=== PATIENT | female | born 1955 | race Caucasian/White ===

== ENCOUNTER → 2020-06-01 10:07 | Outpatient (CLI) | payer MEDICARE, OTHER, SELFPAY ==
--- NOTE | ~2020-06-01 | DEXA_ITS ---
Bone Density Report Name: Rosario Mendez Age: 64 Sex: Female Ethnicity: White Date of : 1955 Indication: osteopenia; prior fracture; postmenopausal Referring Provider: SYEDA, MEG Lane Study: Bone densitometry was performed. Exam Date: June 01, 2020 Accession number: [id number] Bone Density: Region BMD T-score Z-score Classification AP Spine (L1-L4) 0.872 -1.6 0.2 Osteopenia Femoral Neck (Left) 0.644 -1.8 -0.3 Osteopenia Total Hip (Left) 0.823 -1.0 0.3 Normal Femoral Neck (Right) 0.621 -2.1 -0.5 Osteopenia Total Hip (Right) 0.798 -1.2 0.1 Osteopenia Total Hip Mean 0.811 -1.1 0.2 Osteopenia World Health Organization criteria for BMD impression classify patients as: Normal (T-score at or above -1.0), Osteopenia (T-score between -1.0 and -2.5), or Osteoporosis (T-score at or below -2.5). 10-year Fracture Risk(1): Major Osteoporotic Fracture 16% Hip Fracture 2.5% Reported Risk Factors: [place] (), Neck BMD=0.621, BMI=35.8, previous fracture (1) FRAX(R) Version 3.08. Fracture probability calculated for an untreated patient. Fracture probability may be lower if the patient has received treatment. Previous Exams: Region Exam Age BMD T-score BMD Change BMD Change Date g/cm2 vs Baseline vs Previous AP Spine(L1-L4) 06/01/2020 64 0.872 -1.6 0.017 0.044* 06/26/2018 62 0.828 -2.0 -0.026* -0.049* 10/04/2014 59 0.877 -1.5 0.023 0.023 07/28/2012 56 0.854 -1.8 Total Hip(Left) 06/01/2020 64 0.823 -1.0 0.016 0.008 06/26/2018 62 0.815 -1.0 0.008 0.027* 10/04/2014 59 0.788 -1.3 -0.019 -0.019 07/28/2012 56 0.807 -1.1 Total Hip(Right) 06/01/2020 64 0.798 -1.2 0.018 -0.011 06/26/2018 62 0.809 -1.1 0.029* -0.031* 10/04/2014 59 0.840 -0.8 0.061* 0.061* 07/28/2012 56 0.779 -1.3 *Denotes significance at 95% confidence level, LSC for AP Spine = 0.022 g/cm2, LSC for Total Hip = 0.027 g/cm2 Clinical Information Provided by Patient: Has had a low trauma fracture Has used the following medications: Vitamin D Patient maximum height was 62 Menopause Age: 46 No regular weight bearing exercise Does not regularly consume dairy products Onset of menses at age 11 Number of children 3 Impression: The patient has low bone m
== END ==
PROVIDERS: PCP Internal Medicine; Visit Provider Internal Medicine
DX: Z78.0 Asymptomatic menopausal state (principal); M85.89 Other specified disorders of bone density and structure, multiple sites
CPT/HCPCS: 77080

== ENCOUNTER 2021-10-05 11:26 | Outpatient (CLI) | payer MEDICARE, OTHER, SELFPAY ==
--- NOTE | ~2021-10-05 | US_ITS ---
EXAMINATION: US venous doppler LE RT DATE: 10/05/2021 12:12 INDICATION: Right lower limb pain. TECHNIQUE: Grayscale ultrasound images without and with compression and Doppler ultrasound images of the right lower extremity veins were obtained. COMPARISON: None. FINDINGS: The visualized portions of right common femoral vein, profunda (deep) femoral vein, femoral vein, pop liteal vein, peroneal veins, posterior tibial veins, and greater saphenous vein outflow are patent. IMPRESSION: 1. No deep venous thrombosis. Reviewed, dictated and finalized at location B.
== END 2021-10-05 11:27 | disposition home or self-care (01) ==
PROVIDERS: PCP Internal Medicine; Visit Provider Physician Assistant
DX: M79.604 Pain in right leg (principal)
CPT/HCPCS: 93971

== ENCOUNTER 2021-10-11 09:06 | Outpatient (CLI) | payer MEDICARE, OTHER, SELFPAY ==
--- NOTE | 2021-10-16 12:11 | P.PCNHOL_ITS ---
Holter/Event Monitor Holter/Event Monitor Date of procedure: 10/16/21 Holter/Event Procedure: 48 Hr Holter Monitor Diagnosis: Palpitations Indications: Palpitation Image/Tracing Quality: Good quality Finding: The basic cardiac rhythm is sinus with normal MO QRS and QT intervals. The heart rate varies from a minimum of 62 to a maximum of 128. The average heart rate was 85. There were no abrupt pauses or abnormalities of AV conduction observed. Supraventricular ectopic activity was rare there was 1 brief 4 beat run of SVT that occurred at 1:32 a.m. on the 2nd day of monitoring. Otherwise there was only 1 other Pac during the entire tracing. There were no examples of atrial fibrillation. Ventricular ectopic activity was also rare consisting of a total of 4 PVCs that were seen during the entire 48 hour monitoring. There were no ventricular couplets or runs. According to the record there were no symptoms reported during this study. Conclusion: 1. Normal sinus rhythm with normal heart rate variability 2. Rare atrial and ventricular ectopic activity which is not symptomatic Mata Sandoval MD [facility]
== END 2021-10-11 09:07 | disposition home or self-care (01) ==
PROVIDERS: PCP Physician Assistant; Visit Provider Physician Assistant
DX: R00.2 Palpitations (principal)
CPT/HCPCS: 93225; 93226

== ENCOUNTER → 2022-07-04 14:47 | Outpatient (CLI) | payer MEDICARE, OTHER, SELFPAY ==
--- NOTE | ~2022-07-04 | DEXA_ITS ---
Bone Density Report Name: JUAN M GARG Age: 66 Sex: Female Ethnicity: White Date of : 1955 Indication: osteopenia; prior fracture; postmenopausal Referring Provider: CAREY, BETH Study: Bone densitometry was performed. Exam Date: July 04, 2022 Accession number: [id number] Bone Density: Region BMD T-score Z-score Classification AP Spine (L1-L4) 0.895 -1.4 0.6 Osteopenia Femoral Neck (Left) 0.645 -1.8 -0.2 Osteopenia Total Hip (Left) 0.781 -1.3 0.1 Osteopenia Femoral Neck (Right) 0.625 -2.0 -0.4 Osteopenia Total Hip (Right) 0.788 -1.3 0.1 Osteopenia Total Hip Mean 0.785 -1.3 0.1 Osteopenia World Health Organization criteria for BMD impression classify patients as: Normal (T-score at or above -1.0), Osteopenia (T-score between -1.0 and -2.5), or Osteoporosis (T-score at or below -2.5). 10-year Fracture Risk(1): Major Osteoporotic Fracture 17% Hip Fracture 2.7% Reported Risk Factors: [place] (), Neck BMD=0.625, BMI=30.0, previous fracture (1) FRAX(R) Version 3.08. Fracture probability calculated for an untreated patient. Fracture probability may be lower if the patient has received treatment. Previous Exams: Region Exam Age BMD T-score BMD Change BMD Change Date g/cm2 vs Baseline vs Previous AP Spine(L1-L4) 07/04/2022 66 0.895 -1.4 0.041* 0.023* 06/01/2020 64 0.872 -1.6 0.017 0.044* 06/26/2018 62 0.828 -2.0 -0.026* -0.049* 10/04/2014 59 0.877 -1.5 0.023 0.023 07/28/2012 56 0.854 -1.8 Total Hip(Left) 07/04/2022 66 0.781 -1.3 -0.026 -0.042* 06/01/2020 64 0.823 -1.0 0.016 0.008 06/26/2018 62 0.815 -1.0 0.008 0.027* 10/04/2014 59 0.788 -1.3 -0.019 -0.019 07/28/2012 56 0.807 -1.1 Total Hip(Right) 07/04/2022 66 0.788 -1.3 0.009 -0.010 06/01/2020 64 0.798 -1.2 0.018 -0.011 06/26/2018 62 0.809 -1.1 0.029* -0.031* 10/04/2014 59 0.840 -0.8 0.061* 0.061* 07/28/2012 56 0.779 -1.3 *Denotes significance at 95% confidence level, LSC for AP Spine = 0.022 g/cm2, LSC for Total Hip = 0.027 g/cm2 Clinical Information Provided by Patient: Has had a low trauma fracture Has used the following medications: Vitamin D, Calcium Patient maximum height was 62 Menopause Age: 46 No regular weight bearing exerc
== END ==
PROVIDERS: PCP Internal Medicine; Visit Provider Nurse Practitioner
DX: M85.88 Other specified disorders of bone density and structure, other site (principal); M85.89 Other specified disorders of bone density and structure, multiple sites
CPT/HCPCS: 77080

== ENCOUNTER 2023-12-25 10:31 | Outpatient (CLI) | payer MEDICARE, OTHER, SELFPAY ==
--- NOTE | ~2023-12-25 | US_ITS ---
Limited Abdominal Sonogram: Real-time sonographic imaging of the right upper quadrant was performed. Clinical History: Right upper quadrant pain Findings: The liver appears normal with no evidence of solid mass lesion or bile duct dilatation. Ma in portal vein demonstrates normal direction of flow. Benign hepatic cyst noted. The gallbladder is w ell distended, and demonstrates 5 mm gallbladder wall polyp. The common bile duct measures 5 mm. The visualized pancreas, aorta, and IVC are unremarkable. Impression: 5 mm gallbladder wall polyp. Reviewed, dictated and finalized at location M. Impression: 5 mm gallbladder wall polyp.
== END 2023-12-25 10:32 | disposition home or self-care (01) ==
LOC: GOSHIMG 10:31
PROVIDERS: PCP Family Medicine; Visit Provider Family Medicine
DX: K82.4 Cholesterolosis of gallbladder (principal)
CPT/HCPCS: 76705

== ENCOUNTER 2024-02-14 14:14 | Outpatient (CLI) | payer MEDICARE, OTHER, SELFPAY ==
--- NOTE | 2024-02-14 14:27 | ECG_ITS ---
Test Date: 2024-02-14 14:49:19 Measurements Intervals [place] Rate: 76 P: 16 GA: 178 QRS: -35 QRSD: 97 T: 5 QT: 402 QTc: 454 Interpretive Statements SINUS RHYTHM MARKED LEFT AXIS DEVIATION [QRS AXIS < -30] LOW QRS VOLTAGE IN PRECORDIAL LEADS [QRS DEFLECTION < 1.0 mV IN CHEST LEADS] VOLTAGE CRITERIA FOR LVH [MEETS CRITERIA IN ONE OF: R(aVL), S(V1), R(V5), R(V5/V6)+S(V1)] POSSIBLE ANTERIOR MYOCARDIAL INFARCTION [30 ms Q WAVE IN V3/V4, OR R < 0.2 mV IN V4], PROBABLY OLD ABNORMAL ECG No previous ECG available for comparison Electronically Signed On 02-15-2024 13:05:40 CDT by Quirino Amaro M.D.
[2024-02-14 15:16] LABS: Amylase 67 U/L (30-110); Lipase 81 U/L (23-300)
== END 2024-02-14 14:15 | disposition home or self-care (01) ==
PROVIDERS: PCP Family Medicine; Visit Provider Surgery
DX: Z01.818 Encounter for other preprocedural examination (principal); K80.50 Calculus of bile duct without cholangitis or cholecystitis without obstruction; I10 Essential (primary) hypertension
CPT/HCPCS: 36415; 82150; 83690; 93005

== ENCOUNTER 2024-02-24 00:23 | Day surgery (SDC) | payer MEDICARE, OTHER, SELFPAY ==
--- NOTE | 2024-02-13 14:05 | PC.NURSE ---
Report to the Outpatient Waiting Room, entrance under the green pavilion located off [facility], at time __6 AM on date _02/24/24 . Planned Procedure Time: _7:30 AM .? Time changes happen often and if your time is changed the preop area will call you the afternoon before. - You and your visitor will be asked to self-screen and do not enter if you have any COVID symptoms. Please call surgeon if you need to reschedule. - A mask is optional within the hospital at this time. Patients may have clear liquids (water, carbonated beverages, clear teas, apple juice) until 3 hours prior to surgery( 4:30 AM) with a maximum of 20 ounces. - No food from midnight until time of surgery and no smoking - Infants may have breast milk until 4 hours before surgery, infant formula 6 hours prior to surgery. - Children will be allowed to drink immediately following surgery.? If applicable, please bring a bottle or sippy cup to assist with drinking. Juice, water, soda, and popsicles are readily available.? For infants on formula, please bring formula the day of surgery.? Pacifiers are allowed. Take only the following medications with a SIP of water on the morning of surgery: _AMLODIPINE,ESCITALOPRAM,LEVOTHYROXINE DO NOT STOP ANY OF YOUR OTHER PRESCRIPTION MEDICATIONS PRIOR TO SURGERY EXCEPT THE FOLLOWING Medications to discontinue per physician __MAY CONTINUE ASPIRIN PER DR CARVAJAL BUT DO NOT TAKE MORNING OF SURGERY.HOLD ALL VITAMINS AND SUPPLEMENTS 3 DAYS PRE OP Date to take last dose___02/20/24 Please no make-up, nail italian, hairspray, perfume, deodorant, or body powder the day of surgery.? No jewelry (including any body piercings) or valuables the day of surgery, leave them at home.? Please take a shower or bath the night before, or the morning of, surgery with an antibacterial soap.? Wear comfortable, loose fitting clothing.? Children are encouraged to wear pajamas. - Jewelry must be removed prior to entering the operating room.? Rings and piercings that are not removed may be cut off. - The hospital will not accept responsibility for valuables.? - Please leave all valuables, including medications, at home the day of surgery. If you are going home after surgery, a licensed cdl b driver must drive you home.? - NO public transportation without another adult if you receive anesthesia. - We recommend that an adult stay with you for 24 hours following discharge. - We also recommend that you do not drive, make important decision, drink alcoholic beverages, or take any drugs that were not prescribed by your health care provider for at least 24 hours after your discharge time. For Pediatric surgeries, we recommend two adults accompany the child home. Follow any additional instructions given to you from your surgeon. Telephone instructions given to ___PATIENT and asked if any additional questions and then verbalized understanding. Patient advised to call surgeon office or pre surgery nurse liaison [phone] if any additional questions.
[2024-02-13 14:15] VITALS: BMI 30.9
--- NOTE | 2024-02-21 14:38 | WPDANESEPPF ---
Anes - Initial Pre Proc Eval Procedure: Operation Date: 02/24/24 07:30 Proposed Procedures p Laparoscopic Cholecystectomy, Possible Open - Keo Lebron MD Date/Time: 02/21/24 14:38 Surgeon: Keo Lebron MD Pre Op Diagnosis: Biliary Colic Patient Data Age: 68 Gender: F Height: 1.63 m Weight: 81.65 kg Allergies Allergy/AdvReac Type Severity Reaction Status Date / Time No Known Allergies Allergy Verified 02/13/24 13:54 Home Medications Medication Instructions Recorded Confirmed Type amlodipine 5 mg tablet 5 mg PO DAILY 11/29/23 02/13/24 History atorvastatin 40 mg tablet 40 mg PO HS 11/29/23 02/13/24 History escitalopram oxalate 20 mg tablet 20 mg PO DAILY 11/29/23 02/13/24 History omeprazole 40 mg capsule,delayed 40 mg PO DAILY 11/29/23 02/13/24 History release oxybutynin chloride 5 mg tablet 5 mg PO DAILY 11/29/23 02/13/24 History aspirin 81 mg chewable tablet 81 mg PO DAILY 12/20/23 02/13/24 History calcium citrate 250 mg PO DAILY 12/20/23 02/13/24 History cholecalciferol (vitamin D3) 50 50 mcg PO DAILY 12/20/23 02/13/24 History mcg (2,000 unit) capsule cyanocobalamin (vitamin B-12) 1,000 mcg PO DAILY 12/20/23 02/13/24 History 1,000 mcg capsule lactobacillus combination no.9 4 4,000 mmu cells PO DAILY 12/20/23 02/13/24 History billion cell capsule (Adult 50 Plus Probiotic) lisinopril 20 2 tablet PO DAILY #90 tabs 12/20/23 02/13/24 Rx mg-hydrochlorothiazide 12.5 mg tablet multivitamin 1 tablet PO DAILY 12/20/23 02/13/24 History omega 9-nvs-ixp-fish oil 60 mg-90 1 cap PO DAILY 12/20/23 02/13/24 History mg-500 mg capsule (Fish Oil) potassium chloride 20 mEq 20 meq PO DAILY 12/20/23 02/13/24 History tablet,extended release(part/cryst) vitamin E (dl, acetate) 45 mg (100 45 mg PO DAILY 12/20/23 02/13/24 History unit) capsule levothyroxine 100 mcg tablet 100 mcg PO DAILY #90 tabs 01/27/24 02/13/24 Rx Patient hx anesthesia problems: none Family hx anesthesia problems: none Results Review: All pre-operative results and documents have been reviewed as part of the pre-operative evaluation. [facility] Past Medical History Medical History Breast cancer Colon cancer HTN (hypertension) Hyperlipemia Hypothyroidism, unspecified Thyroid disorder Surgical History Surgical History History of appendectomy History of breast reconstruction History of colectomy History of mastectomy History of tubal ligation Family History Family History Father Malignant neoplasm of prostate Heart disease Mother Lung cancer Asthma Sibling Stomach cancer Other Acute myocardial infarction Cancer Social History Social History Smoking status: Never smoker Second hand tobacco smoke exposure: Yes Alcohol intake: current Alcohol use details: beer - 6x a year if that Substance use: never Substance use type: does not use Do You Feel Safe in your Home?: Yes Lack of Transportation: No Lack of Food: Never True Current Housing: I Have Housing Concerned About Future Housing: No Difficulty Paying Gas/Electric Bills: No Difficulty Paying for Meds: No Currently Unemployed: No Education: High School Diploma/GED Difficulty w/ Childcare or Family Care: No Living arrangements: with family Occupation/Education: retired 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 Informed Consent: The patient's anesthetic plan and its attendant risks and benefits were discussed with the patient/family/POA. Questions were solicited and answers provided to the satisfaction of the patient/family/POA.
[2024-02-24] VITALS (9 sets, daily range): BP systolic 100–128; BP diastolic 46–71; PULSE 73–84; RESP 12–16; TEMP 36.4–36.6; O2SAT 94–100; BMI 32.5
[2024-02-24] MEDS: LACTATED RINGERS 1,000 ML 30 ML IV CONT ×2 (06:25→08:54)
[2024-02-24] MEDS: ACETAMINOPHEN 500 MG TABLET 1000 MG PO (07:14)
[2024-02-24] MEDS: KETOROLAC 15 MG/ML VIAL (*BKC) IV PUSH (07:15)
--- NOTE | 2024-02-24 07:18 | P.HP_ITS ---
H&P: HPI History of Present Illness Date/Time: 02/24/24 07:18 Chief Complaint: RUQ pain, gallbladder polyp, Narrative: Ms. Mendez presents to the office at the request of Dr. Mathur for evaluation. The patient reports experiencing frequent episodes of RUQ abdominal pain that radiates around to her back as well as bloating and diarrhea after eating, made worse after eating fried, fatty, and spicy foods. Was sent by her PCP for a abdominal ultrasound which showed a 5mm gallbladder polyp. She has personal history of colon CA without metastases for which she underwent laparoscopic colectomy with subsequent chemotherapy in approximately 2008. Also has hx of breast CA and underwent mastectomy with subsequent chemotherapy. No radiation therapy treatment. Review of Systems Review of Systems: The remainder of the review of systems to include constitutional, HEENT, cardiovascular, respiratory, GI, , integumentary, musculoskeletal, endocrine, immunologic, hematologic, psychiatric, and neurologic are all negative except for which is mentioned above in the HPI. [facility] Past Medical History Medical History Breast cancer Colon cancer HTN (hypertension) Hyperlipemia Hypothyroidism, unspecified Thyroid disorder Surgical History Surgical History History of appendectomy History of breast reconstruction History of colectomy History of mastectomy History of tubal ligation Family History Family History Father Malignant neoplasm of prostate Heart disease Mother Lung cancer Asthma Sibling Stomach cancer Other Acute myocardial infarction Cancer Social History Social History Smoking status: Never smoker Second hand tobacco smoke exposure: Yes Alcohol intake: current Alcohol use details: beer - 6x a year if that Substance use: never Substance use type: does not use Do You Feel Safe in your Home?: Yes Lack of Transportation: No Lack of Food: Never True Current Housing: I Have Housing Concerned About Future Housing: No Difficulty Paying Gas/Electric Bills: No Difficulty Paying for Meds: No Currently Unemployed: No Education: High School Diploma/GED Difficulty w/ Childcare or Family Care: No Living arrangements: with family Occupation/Education: retired 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 Gender identity (if verbalized by the patient): Female Spiritual care concerns: No Meds Home Medications and Allergies Home Medications Medication Instructions Recorded Confirmed Type amlodipine 5 mg tablet 5 mg PO DAILY 11/29/23 02/13/24 History atorvastatin 40 mg tablet 40 mg PO HS 11/29/23 02/13/24 History escitalopram oxalate 20 mg tablet 20 mg PO DAILY 11/29/23 02/13/24 History omeprazole 40 mg capsule,delayed 40 mg PO DAILY 11/29/23 02/13/24 History release oxybutynin chloride 5 mg tablet 5 mg PO DAILY 11/29/23 02/13/24 History aspirin 81 mg chewable tablet 81 mg PO DAILY 12/20/23 02/13/24 History calcium citrate 250 mg PO DAILY 12/20/23 02/13/24 History cholecalciferol (vitamin D3) 50 50 mcg PO DAILY 12/20/23 02/13/24 History mcg (2,000 unit) capsule cyanocobalamin (vitamin B-12) 1,000 mcg PO DAILY 12/20/23 02/13/24 History 1,000 mcg capsule lactobacillus combination no.9 4 4,000 mmu cells PO DAILY 12/20/23 02/13/24 History billion cell capsule (Adult 50 Plus Probiotic) lisinopril 20 2 tablet PO DAILY #90 tabs 12/20/23 02/13/24 Rx mg-hydrochlorothiazide 12.5 mg tablet multivitamin 1 tablet PO DAILY 12/20/23 02/13/24 History omega 7-sxi-uxl-fish oil 60 mg-90 1 cap PO DAILY 12/20/23 02/13/24 History mg-500 mg capsule (Fish Oil) potassium chloride 20 mEq 20 meq PO DAILY 12/20/23 02/13/24 History tablet,extended release(part/cryst) vitamin E (dl, acetate) 45 mg (100 45 mg PO DAILY 12/20/23 02/13/24 History unit) capsule levothyroxine 100 mcg tablet 100 mcg PO DAILY #90 tabs 01/27/24 02/13/24 Rx Allergies Allergy/AdvReac Type Severity Reaction Status Date / Time No Known Allergies Allergy Verified 02/13/24 13:54 Exam Const: General: comfortable and no acute distress HENMT: Ears: TM's normal bilaterally Face/Nose/Sinus: Normal nares present Mouth: Yes moist mucous membranes Eyes: General: appearance normal, both eyes and all related structures Sclera: sclerae normal Pupils: Equal, round and reactive pupils present EOM: EOMs intact bilaterally Neck: Neck: supple and no JVD Resp: Effort & Inspection: normal respiratory effort Auscultation: clear to auscultation bilaterally Cardio: Rate: regular rate Rhythm: regular rhythm GI: Other: Soft, nondistended, nontender. Minimal TTP of the RUQ. No hernias and no masses. Skin: General skin exam: normal color and no rashes or lesions noted Neuro: General: gait normal Speech: normal speech Motor exam (neuro): 5/5 motor strength present throughout Sensory Exam: normal sensation Extrem: General: normal to inspection Psych: Mental Status: mental status grossly normal Affect: normal affect Assessment and Plan Assessment and plan (1) Biliary colic: Code(s): K80.50 - Calculus of bile duct without cholangitis or cholecystitis without obstruction Status: Acute Assessment and Plan: Prior to the patients visit today, I reviewed the office note from Dr. Mathur as well as the report from her recent abdominal ultrasound. Explained that I feel her symptoms of RUQ abdominal pain, bloating, and diarrhea are related to her gallbladder, and that she would likely benefit from laparoscopic cholecystectomy. The surgery was discussed in detail with the patient including description, risks, benefits, post-operative restrictions, recovery, and anticipated outcome.? Specific risks to include bleeding and possible need for blood transfusion, infection, bile leak, injury to other organs, common?bile duct injury, and conversion to open cholecystectomy has been discussed.? Surgical description and low fat handout sheets were given and explained.? Questions answered and the patient agrees to proceed as discussed.?
--- NOTE | 2024-02-24 07:26 | WPDHPUPDATE1 ---
History and Physical Update Update Date/Time: 02/24/24 07:26 History and Physical has been reviewed, including an updated exam of the patient. There are NO changes in the patient's condition. Risks, benefits, and alternatives have been discussed and questions answered. Patient agrees to proceed with procedure.
[2024-02-24] MEDS: ceFAZolin 2 GM/D5W 50 ML 2 GM/50 ML BAG IVPB (07:32)
[2024-02-24] MEDS: LIDO 1%/EPINEPHRINE 1:100,000 50 ML VIAL 30 ML INFILTRATE (07:32)
[2024-02-24] MEDS: BUPivacaine HCL 0.5% 10 ML AMP 30 ML INFILTRATE (07:32)
--- NOTE | 2024-02-24 08:46 | W.PM.PROC2 ---
Procedure Note - Detailed Date of Procedure 02/24/24 Pre-op Diagnosis Biliary Colic, gallbladder polyp Post-op Diagnosis Same Procedure Performed Laparoscopic cholecystectomy Surgeon Keo Lebron MD Pollution Control Technician Monica Apodaca [facility] Anesthesia General Indications Patient is a 68-year-old female who has been having problems with eating and having pain after eating. Fatty foods make the pain worse. Pain is situated mostly the right upper quadrant. She has bloating and sometimes has stool urgency. Abdominal ultrasound showed a 5mm gallbladder polyp. No evidence of gallbladder wall thickening. She presents now for elective laparoscopic cholecystectomy. Findings The gallbladder did not have any evidence of acute or chronic inflammation. No adhesions to the gallbladder were seen. The gallbladder was sent to pathology for examination. No stones were palpated. Description of Procedure After informed consent was obtained patient brought to the operating room she was placed supine position and general endotracheal anesthesia was administered. The abdomen was then prepped and draped usual sterile fashion. A time-out was then performed correctly identifying the patient as well as procedure to be performed. She was given perioperative IV antibiotics. Entered the abdomen left upper quadrant utilizing a 5mm Optiview port. Once inside the abdomen insufflated to adequate pneumoperitoneum of 15mmHg of CO2. There were no adhesions around the area the umbilicus. I placed a 5mm periumbilical trocar port under direct visualization. I then placed the epigastric 10mm trocar port and 2 right lateral subcostal 5mm trocar ports all under direct visualization. The gallbladder was visualized the right upper quadrant. Was mildly distended but no gallbladder wall thickening or erythema the gallbladder wall was seen. No adhesions of the omentum, duodenum, or stomach were seen to the gallbladder wall. The gallbladder was held laparoscopic grasper and the dome and elevated over the right half liver towards right shoulder. A 2nd grasper used to hold gallbladder at the infundibulum. I then proceeded to strip down the visceral peritoneum off of the infundibular gallbladder to identify the cystic duct. Cystic duct was then dissected out circumferentially. The cystic artery was identified and dissected out circumferentially as well. Posterior wall the gallbladder at the infundibulum dissected free liver until the critical view was obtained. I then placed 2 clips proximally cystic duct and 2 clips distally high on infundibular gallbladder. The cystic duct was divided Endo Daljit. In a similar fashion cystic artery was clipped and divided as well. The gallbladder was then resected off the liver utilized electrocautery. At 1 point during the dissection the wall the gallbladder was then electrocautery and a small amount of bile spilled out the gallbladder. This was quickly suctioned up. Once the gallbladder completely freed from the liver is placed into an Endo-Catch bag and brought out through the epigastric port site. The gallbladder was sent to pathology for examination. I then thoroughly irrigated out the right upper quadrant the abdomen the gallbladder fossa sterile saline solution. Hemostasis was good. No active bile leak. All the bile was aspirated from the right upper quadrant that had spilled. I aspirated the fluid from the pelvis as well. I then removed all the trocar ports under visualization all port sites appeared hemostatic. I then allowed the abdomen decompressed. I a all irrigated the port sites and hemostasis was good the skin level. I then closed all the port sites utilizing a running subcuticular 4-0 Monocryl suture. The incisions were then cleaned the skin glue sterile dressings were applied. The patient tolerated the procedure well no complications. All sponges, needles, and instrument counts were correct at the end procedure. EBL was 15___cc. The patient was awakened and taken to recovery in stable and satisfactory condition. Implants None Estimated Blood Loss 15 Drains No Packing No Pathology Yes (Gallbladder to pathology) Complications No immediate complications Condition Stable Disposition PACU [facility] Billing Surgery - Charge Forward: Surgery Billing
[2024-02-24] MEDS: oxyCODONE HCL (*CRX) 5 MG TAB IR PO (09:56)
== END 2024-02-24 10:40 | disposition home or self-care (01) ==
PROVIDERS: PCP Family Medicine; Visit Provider Surgery
PROC: 0FT44ZZ Resection of Gallbladder, Percutaneous Endoscopic Approach (ICD-10-PCS; CPT 47562; principal; 2024-02-24 07:30)
DX: K82.4 Cholesterolosis of gallbladder (principal); E78.5 Hyperlipidemia, unspecified; I10 Essential (primary) hypertension; E03.9 Hypothyroidism, unspecified; E07.9 Disorder of thyroid, unspecified; E66.9 Obesity, unspecified; Z68.32 Body mass index [BMI] 32.0-32.9, adult; Z79.82 Long term (current) use of aspirin; Z98.890 Other specified postprocedural states; Z90.49 Acquired absence of other specified parts of digestive tract; Z98.51 Tubal ligation status; Z85.3 Personal history of malignant neoplasm of breast; Z85.038 Personal history of other malignant neoplasm of large intestine; Z80.42 Family history of malignant neoplasm of prostate; Z80.1 Family history of malignant neoplasm of trachea, bronchus and lung; Z80.0 Family history of malignant neoplasm of digestive organs; Z82.49 Family history of ischemic heart disease and other diseases of the circulatory system
CPT/HCPCS: 47562; 88304; A9270; J0690; J1100; J1885; J2003; J2004; J2250; J2371; J2405; J2704; J3010; J7030; J7120

== ENCOUNTER 2024-03-20 08:59 | Emergency (ER) | payer MEDICARE, OTHER, SELFPAY ==
--- NOTE | ~2024-03-20 | XR_ITS ---
XR tibia fibula LT 2V DATE: 03/20/2024 10:46 INDICATION: Left lower leg pain for months TECHNIQUE: AP and lateral views COMPARISON: None FINDINGS: There are 2 compression screws extending through the medial malleolus into the distal tibia l diametaphysis. Plate and 6 through screws along the distal fibular shaft and lateral malleolus. No recent fracture or dislocation, periosteal reaction or bone destruction. Normal alignment at the k nee and ankle joints. Slight plantar and posterior calcaneal enthesopathy. IMPRESSION: Status post bimalleolar fracture ORIF Osteopenia No recent fracture or dislocation, periosteal reaction or bone destruction Slight plantar and posterior calcaneal enthesopathy Reviewed, dictated and finalized at location A. 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
[2024-03-20 09:43] VITALS: BP 118/70; PULSE 70; RESP 16; TEMP 35.8; O2SAT 99
--- NOTE | 2024-03-20 10:08 | ED_ITS ---
HPI - Extremity Injury (Lower) General Chief Complaint: Extremity Injury, Lower Stated Complaint: Left Ankle Pain Time Seen by Provider: 03/20/24 10:08 Source: patient, RN notes reviewed and old records reviewed Mode of arrival: ambulatory Limitations: no limitations History of Present Illness HPI Narrative: Patient presents with complaints of left ankle pain that has been going on intermittently for 6-8 weeks. She reports pain is increased with weight- bearing. States that she was out Black Saturday shopping and pain became unbearable. She reports the pain is no longer present since she has been resting the affected extremity. States that she has hardware in place to the affected ankle, surgery was 12 years ago. She does have an appointment with Orthopedics in April. She denies any recent injury or trauma. She reports that she has been unable to go to work secondary to pain. Is requesting x-ray and work note at this time Related Data Home Medications Medication Instructions Recorded Confirmed omeprazole 40 mg capsule,delayed 40 mg PO DAILY 11/29/23 03/20/24 release oxybutynin chloride 5 mg tablet 5 mg PO DAILY 11/29/23 03/20/24 aspirin 81 mg chewable tablet 81 mg PO DAILY 12/20/23 03/20/24 calcium citrate 250 mg PO DAILY 12/20/23 03/20/24 cholecalciferol (vitamin D3) 50 50 mcg PO DAILY 12/20/23 03/20/24 mcg (2,000 unit) capsule cyanocobalamin (vitamin B-12) 1,000 mcg PO DAILY 12/20/23 03/20/24 1,000 mcg capsule lactobacillus combination no.9 4 4,000 mmu cells PO DAILY 12/20/23 03/20/24 billion cell capsule (Adult 50 Plus Probiotic) multivitamin 1 tablet PO DAILY 12/20/23 03/20/24 omega 7-gwf-xrg-fish oil 60 mg-90 1 cap PO DAILY 12/20/23 03/20/24 mg-500 mg capsule (Fish Oil) potassium chloride 20 mEq 20 meq PO DAILY 12/20/23 03/20/24 tablet,extended release(part/cryst) vitamin E (dl, acetate) 45 mg (100 45 mg PO DAILY 12/20/23 03/20/24 unit) capsule amlodipine 10 mg tablet 10 mg PO DAILY 03/20/24 03/20/24 levothyroxine 112 mcg tablet 112 mcg PO DAILY 03/20/24 03/20/24 prednisone 20 mg tablet 20 mg PO DAILY 03/20/24 03/20/24 Allergies Allergy/AdvReac Type Severity Reaction Status Date / Time No Known Allergies Allergy Verified 03/20/24 10:09 Review of Systems Review of Systems: All systems reviewed & are unremarkable except as noted in HPI and below Constitutional: Constitutional: Reports no additional constitutional complaints ENT: Reports system reviewed and no additional complaints, except as documented Cardiovascular: Cardiovascular: Reports no additional cardiovascular complaints Respiratory: Respiratory: Reports no additional respiratory complaints Gastrointestinal: Gastrointestinal: Reports no additional gastrointestinal complaints Musculoskeletal: Musculoskeletal: Reports no additional musculoskeletal complaints and Reports as per HPI [facility] Past Medical History Medical History Breast cancer Colon cancer HTN (hypertension) Hyperlipemia Hypothyroidism, unspecified Thyroid disorder Surgical History Surgical History History of appendectomy History of breast reconstruction History of colectomy History of mastectomy History of tubal ligation Hx laparoscopic cholecystectomy 02/24/[address] Lebron Family History Family History Father Malignant neoplasm of prostate Heart disease Mother Lung cancer Asthma Sibling Stomach cancer Other Acute myocardial infarction Cancer Social History Social History Smoking status: Never smoker Second hand tobacco smoke exposure: Yes Alcohol intake: current Alcohol use details: beer - 6x a year if that Substance use: never Substance use type: does not use Do You Feel Safe in your Home?: Yes Lack of Transportation: No Lack of Food: Never True Current Housing: I Have Housing Concerned About Future Housing: No Difficulty Paying Gas/Electric Bills: No Difficulty Paying for Meds: No Currently Unemployed: No Education: High School Diploma/GED Difficulty w/ Childcare or Family Care: No Living arrangements: with family Occupation/Education: retired 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 There is no relevant family history pertinent to the patient complaint. Exam Const: General: cooperative, no acute distress, alert and awake Orientation/consciousness: oriented to person, oriented to place and oriented to time HENMT: Head: normal to inspection Resp: Effort & Inspection: normal respiratory effort and able to speak in complete sentences Auscultation: clear to auscultation bilaterally, no crackles, no rales, no rhonchi and no wheezes Cardio: Palpation: normal PMI Rate: regular rate Rhythm: regular rhythm Heart sounds: S1 normal heart sound present and S2 normal heart sound present Neuro: General: oriented to person, oriented to place and oriented to time Cranial nerves: Yes CN's II-XII intact bilaterally Extrem: Left lower extremity: normal to inspection, full ROM and normal capillary refill; no edema Psych: Appearance: grossly normal Thought process: Normal thought process present Insight: Good insight present (Psych) Judgement: Good judgement pr esent (Psych) Course Course Level of Care: Express Care Visit Vital Signs Vital signs: Vital Signs Temperature 96.4 F L 03/20/24 09:43 Pulse Rate 70 03/20/24 09:43 Respiratory Rate 16 03/20/24 09:43 Blood Pressure 118/70 03/20/24 09:43 Pulse Oximetry 99 03/20/24 09:43 Oxygen Delivery Room Air 03/20/24 09:43 Temperature 96.4 F L 03/20/24 09:43 Pulse Rate 70 03/20/24 09:43 Respiratory Rate 16 03/20/24 09:43 Blood Pressure 118/70 03/20/24 09:43 Pulse Oximetry 99 03/20/24 09:43 Oxygen Delivery Room Air 03/20/24 09:43 Reviewed MDM - Extremity Injury (Lower) MDM Narrative Medical decision making narrative: No acute findings on x-ray. Work note provided. Patient advised to follow with primary care provider and orthopedics as scheduled. Emergency department for new or worse symptoms. Discharge instructions reviewed with patient, as well as provided in writing per nursing staff. The instructions also include specific and strict return/GO TO THE ER as well as f/u information. All questions have been answered, and the patient deny any further questions with discharge and discharge plan. Some parts of this dictation were generated by voice recognition software and may contain typographical and/or grammatical inaccuracies. Differential Diagnosis Differential diagnosis: Likely ankle sprain and strain and ankle fracture Medical Records Attestation: I reviewed the patient's medical records. Imaging Data My impression: no fracture Radiologist's impression: [facility] [address] [place] [address] XRay Report Signed Patient: Rosario Mendez : 1955 MR#: [id number] Age: 68 Acct:[id number] Loc: [facility] ADM Date: 03/20/24Attending Dr: Ordering Physician: Kaylie Campa FNP Date of Service: 03/20/24 Procedure(s): XR tibia fibula LT 2V Accession Number(s): [id number] cc: Kaylie Campa FNP; Marcia Mathur DO~ XR tibia fibula LT 2V DATE: 03/20/2024 10:46 INDICATION: Left lower leg pain for months TECHNIQUE: AP and lateral views COMPARISON: None FINDINGS: There are 2 compression screws extending through the medial malleolus into the distal tibial diametaphysis. Plate and 6 through screws along the distal fibular shaft and lateral malleolus. No recent fracture or dislocation, periosteal reaction or bone destruction. Normal alignment at the knee and ankle joints. Slight plantar and posterior calcaneal enthesopathy. IMPRESSION: Status post bimalleolar fracture ORIF Osteopenia No recent fracture or dislocation, periosteal reaction or bone destruction Slight plantar and posterior calcaneal enthesopathy Reviewed, dictated and finalized at location A. 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 Treatment (ED) Additional Instructions: Follow-up with primary care provider and orthopedics as scheduled. Emergency department for new or worse symptoms Patient Language: Barbadian Prescriptions: No Action prednisone 20 mg tablet 20 mg PO DAILY amlodipine 10 mg tablet 10 mg PO DAILY levothyroxine 112 mcg tablet 112 mcg PO DAILY multivitamin Tablet 1 tablet PO DAILY vitamin E (dl, acetate) 45 mg (100 unit) capsule 45 mg PO DAILY aspirin 81 mg tablet,chewable 81 mg PO DAILY cyanocobalamin (vitamin B-12) 1,000 mcg capsule 1,000 mcg PO DAILY cholecalciferol (vitamin D3) 50 mcg (2,000 unit) capsule 50 mcg PO DAILY potassium chloride 20 mEq tablet,ER particles/crystals 20 meq PO DAILY omega 3-sii-pwi-fish oil [Fish Oil] 60-90-500 mg capsule 1 cap PO DAILY Adult 50 Plus Probiotic 4 billion cell capsule 4,000 mmu cells PO DAILY Rx Instructions: administer with a meal calcium citrate 250 mg calcium tablet 250 mg PO DAILY lisinopril-hydrochlorothiazide 20-12.5 mg tablet 2 tablet PO DAILY Qty: 90 1RF omeprazole 40 mg capsule,delayed release(DR/EC) 40 mg PO DAILY oxybutynin chloride 5 mg tablet 5 mg PO DAILY hydrocodone-acetaminophen 5-325 mg tablet 1 - 2 tablet PO Q6H PRN (Reason: pain) Qty: 12 0RF atorvastatin 40 mg tablet 40 mg PO HS Qty: 90 1RF escitalopram oxalate 20 mg tablet 20 mg PO DAILY Qty: 90 1RF Follow-up/Referrals: Marcia Mathur DO [Primary Care Provider] - 1 Week Stand Alone Forms: Work/School Release IP Time of Disposition: 11:03
== END 2024-03-20 11:12 | disposition home or self-care (01) ==
PROVIDERS: Emergency Provider Nurse Practitioner Family; PCP Family Medicine
DX: M25.572 Pain in left ankle and joints of left foot (principal); I10 Essential (primary) hypertension; E78.5 Hyperlipidemia, unspecified; E03.9 Hypothyroidism, unspecified; Z85.3 Personal history of malignant neoplasm of breast; Z90.10 Acquired absence of unspecified breast and nipple; Z85.038 Personal history of other malignant neoplasm of large intestine
CPT/HCPCS: 73590; 99213; G0463

== ENCOUNTER 2024-10-22 11:51 | Outpatient (CLI) | payer MEDICARE, OTHER, SELFPAY ==
--- NOTE | ~2024-10-22 | XR_ITS ---
HISTORY: M25.512 - Pain in left shoulder COMPARISON: None TECHNIQUE: 2 views of the left shoulder were performed FINDINGS: No acute fracture. The glenohumeral joint space is maintained. Widening of the acromioclavicular joint space is identified suggesting acromioclavicular joint injury . The visualized portion of the adjacent left lung is clear. The humeral head is well seated within the glenoid fossa. IMPRESSION: Findings suggesting acromioclavicular joint injury. No acute fracture or anterior dislocation. Reviewed, dictated and finalized at location A.
== END 2024-10-22 11:52 | disposition home or self-care (01) ==
PROVIDERS: Visit Provider Family Medicine
DX: M25.512 Pain in left shoulder (principal)
CPT/HCPCS: 73030

== ENCOUNTER 2025-01-13 10:09 | Emergency (ER) | payer MEDICARE, SELFPAY ==
[2025-01-13 10:17] VITALS: BP 105/58; PULSE 87; RESP 16; TEMP 36.4; O2SAT 96
[2025-01-13 10:38] LABS: EDSTREPNEGPOS1 Negative (Negative)
--- NOTE | 2025-01-13 11:15 | ED.URI ---
HPI - URI/Sore Throat General Chief Complaint: Upper Respiratory Infection Stated Complaint: sore throat Time Seen by Provider: 01/13/25 10:45 Source: patient and RN notes reviewed Mode of arrival: ambulatory Limitations: no limitations History of Present Illness HPI Narrative: 69-year-old female presents Express Care complaining of sore throat and tongue irritation the last couple days. Patient denies any other upper respiratory symptoms, fevers, body aches, chills, cough, chest pain, difficulty breathing, nausea vomiting, diarrhea, or any other symptoms. Patient reported her tongue is coated and white she reports her tongue feels itchy, loss taste, pain with eating and swelling, and a cotton the feeling in her mouth. Patient denies any injury use, using cortical steroid inhalers, dry mouth problems, recent antibiotic use, using antibacterial mouthwash, being immunocompromised, no immunosuppressants, no chemotherapy or radiation to the head or neck, no history of HIV, no risk factors for oral thrush. Patient does wear CPAP at night says she cleans it regularly. Related Data Home Medications ?Medication ?Instructions ?Recorded ?Confirmed ?Last Taken ?Type omeprazole 40 mg capsule,delayed 40 mg PO DAILY 11/29/23 12/11/24 Unknown History release aspirin 81 mg chewable tablet 81 mg PO DAILY 12/20/23 12/11/24 Unknown History cholecalciferol (vitamin D3) 50 50 mcg PO DAILY 12/20/23 12/11/24 02/20/24 History mcg (2,000 unit) capsule cyanocobalamin (vitamin B-12) 1,000 mcg PO DAILY 12/20/23 12/11/24 02/20/24 History 1,000 mcg capsule lactobacillus combination no.9 4 4,000 mmu cells PO DAILY 12/20/23 12/11/24 02/20/24 History billion cell capsule (Adult 50 Plus Probiotic) multivitamin 1 tablet PO DAILY 12/20/23 12/11/24 02/20/24 History omega 7-rqp-jcl-fish oil 60 mg-90 1 cap PO DAILY 12/20/23 12/11/24 02/20/24 History mg-500 mg capsule (Fish Oil) potassium chloride 20 mEq 20 meq PO DAILY 12/20/23 12/11/24 02/20/24 History tablet,extended release(part/cryst) vitamin E (dl, acetate) 45 mg (100 45 mg PO DAILY 12/20/23 12/11/24 02/20/24 History unit) capsule amlodipine 10 mg tablet 10 mg PO DAILY 03/20/24 12/11/24 Unknown History levothyroxine 112 mcg tablet 112 mcg PO DAILY 03/20/24 12/11/24 Unknown History calcium carbonate 500 mg PO DAILY 07/23/24 12/11/24 Unknown History Allergies Allergy/AdvReac Type Severity Reaction Status Date / Time No Known Allergies Allergy Verified 01/13/25 10:17 Review of Systems Review of Systems: CONSTITUTIONAL: Denies fever, chills, or sweats. EYES: Denies visual changes, redness, or discharge. ENT: Denies rhinorrhea, congestion, or otalgia. Positive for sore throat. MOUTH: Positive for coated tongue in the tongue irritation. CARDIOVASCULAR: Denies chest pain, palpitations, or edema. RESPIRATORY: Denies cough or dyspnea. GASTROINTESTINAL: Denies abdominal pain, nausea, vomiting, or diarrhea. GENITOURINARY: Denies dysuria or hematuria. SKIN: Denies rash or itching. MUSCULOSKELETAL: Denies back pain, joint pain, or myalgia. NEUROLOGIC: Denies headache, numbness, or weakness. PSYCHIATRIC: Denies anxiety or depression. All other systems reviewed are negative, except as documented in HPI. [facility] Past Medical History Medical History Hyperlipemia Hypothyroidism, unspecified Thyroid disorder HTN (hypertension) Colon cancer Breast cancer Surgical History Surgical History Hx laparoscopic cholecystectomy 02/24/[address] Lebron History of breast reconstruction History of colectomy History of appendectomy History of tubal ligation History of mastectomy Family History Family History Father Malignant neoplasm of prostate Heart disease Mother Lung cancer Asthma Sibling Stomach cancer Other Acute myocardial infarction Cancer Social History Social History Smoking status: Never smoker Second hand tobacco smoke exposure: Yes Alcohol intake: current Alcohol use details: beer - 6x a year if that Substance use: never Substance use type: does not use Current Housing: Decline to Answer Concerned About Future Housing: Decline to Answer Difficulty Paying Gas/Electric Bills: Decline to Answer Difficulty Paying for Meds: Decline to Answer Currently Unemployed: Decline to Answer Education: Decline to Answer Difficulty w/ Childcare or Family Care: Decline to Answer Living arrangements: with family Occupation/Education: retired 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 There is no relevant family history pertinent to the patient complaint. Exam Narrative: GENERAL: This is a well-nourished, well-developed adult, in no apparent distress. They are non ill-appearing, nontoxic appearing. HEAD: normocephalic, atraumatic. EYES: Sclera clear/white. Conjunctiva normal. Vision is grossly intact. Extraocular movements intact EARS: External ears normal, auditory canals clear and without drainage, TMs normal without perforation. Hearing grossly intact. NOSE: External nose normal with no obvious nasal discharge, nasal turbinates without redness, no rhinorrhea. THROAT: Mucous membranes moist, posterior pharynx erythematous. No suspicious lesions or ulcerations. Uvula midline. OROPHARYNX: Tongue is coated and white, appears plaque like some lesions can be scraped off. No other suspicious lesions, plaques, ulcerations to the oral pharynx, soft palate, or buccal surface. Good dentition. No gingivitis. No missing teeth. NECK: Neck supple, non-tender without lymphadenopathy, masses or thyromegaly. CARDIOVASCULAR: Regular rate and rhythm without murmurs, gallops, or rubs. RESPIRATORY: Clear to auscultation. Breath sounds equal bilaterally. No wheezes, rales, or rhonchi. SKIN: warm, Dry, intact with no suspicious lesions or rash, good texture and turgor. NEURO: awake, alert, and oriented to person, place and time. There were no obvious focal neurologic abnormalities. EXTREMITIES: No joint tenderness, effusion, or edema noted. Course Course Emergency Course: Portions of this record may have been created with voice recognition software Level of Care: Express Care Visit Vital Signs Vital signs: Vital Signs Temperature 97.5 F L 01/13/25 10:17 Pulse Rate 87 01/13/25 10:17 Respiratory Rate 16 01/13/25 10:17 Blood Pressure 105/58 L 01/13/25 10:17 Pulse Oximetry 96 01/13/25 10:17 Oxygen Delivery Room Air 01/13/25 10:17 Temperature 97.5 F L 01/13/25 10:17 Pulse Rate 87 01/13/25 10:17 Respiratory Rate 16 01/13/25 10:17 Blood Pressure 105/58 L 01/13/25 10:17 Pulse Oximetry 96 01/13/25 10:17 Oxygen Delivery Room Air 01/13/25 10:17 Reviewed MDM - URI/Sore Throat MDM Narrative Medical decision making narrative: Rapid strep negative. A throat culture is pending. Appears patient likely has oral thrush. Use only present on patient's time however some lesions are able to be scraped off. Patient has no identifiable risk factors for oral thrush, not immunocompromised, no mouthwash use. Patient says she does brushes her teeth a toothpaste. Patient is uses CPAP reports clean it regularly. We will go ahead and treat her for oral thrush with clotrimazole deann and advised close follow-up with PCP in 3-5 days specially if symptoms are not resolving. Discussed physical exam findings. Advised supportive measures and signs/symptoms to go to the ER. Pt is appropriate for outpt treatment and f/u. Differential Diagnosis Differential diagnosis: Likely upper respiratory infection, pharyngitis and other (Oral thrush, leukoplakia, geographic tongue, viral illness) Lab Data Attestation: I reviewed the patient's lab results. Labs: Lab Results 01/13/25 Range/Units 10:25 POC Grp A Strep Screen Negative (Negative) Critical Care Time Critical Care Time Critical Care Time: No Discharge Plan Discharge Clinical Impression: Oral thrush Patient Disposition: Home Condition: Stable Instructions: Antibiotic Form, Oral Candidiasis (ED) Additional Instructions: Rapid strep is negative. A throat culture will be sent off and if it is positive for strep you will be contacted started on appropriate antibiotics. It is likely you have oral thrush. Please use the clotrimazole troches as directed. These dissolve on their own. Place the deann under your tongue or in your cheek cavity between the cheek and gums and leave it there until dissolves completely, this may take up to 15-30 minutes. Please change placement of the deann in the mouth each dose to improve absorption. Wait at least 15 minutes to eat or drink after the deann at completely dissolved. Do not swallow or to deann do not eat, drink, or go to sleep with in your mouth until has completely dissolved. Should notice symptom improvement in 3 days. Please follow-up with PCP in 3-5 days especially if symptoms are not resolving. Please go to the ER if you developed fevers, body aches, chills, chest pain, difficulty breathing, nausea, vomiting, worsening symptoms, difficulty swallowing, difficulty clearing secretions, or any serious concerns. Patient Language: Upper Sorbian Prescriptions: New clotrimazole 10 mg deann See Rx Instructions .ROUTE .COMPLEX Qty: 35 0RF Rx Instructions: 10 mg to affected mucosal area. 1 deann dissolved over 15-30minutes 5 times a day while awake for 1 week. No Action amlodipine 10 mg tablet 10 mg PO DAILY levothyroxine 112 mcg tablet 112 mcg PO DAILY multivitamin Tablet 1 tablet PO DAILY vitamin E (dl, acetate) 45 mg (100 unit) capsule 45 mg PO DAILY aspirin 81 mg tablet,chewable 81 mg PO DAILY cyanocobalamin (vitamin B-12) 1,000 mcg capsule 1,000 mcg PO DAILY cholecalciferol (vitamin D3) 50 mcg (2,000 unit) capsule 50 mcg PO DAILY potassium chloride 20 mEq tablet,ER particles/crystals 20 meq PO DAILY omega 2-kdq-rrp-fish oil [Fish Oil] 60-90-500 mg capsule 1 cap PO DAILY Adult 50 Plus Probiotic 4 billion cell capsule 4,000 mmu cells PO DAILY Rx Instructions: administer with a meal calcium carbonate 500 mg calcium (1,250 mg) tablet 500 mg PO DAILY omeprazole 40 mg capsule,delayed release(DR/EC) 40 mg PO DAILY lisinopril-hydrochlorothiazide 20-12.5 mg tablet 2 tablet PO DAILY Qty: 180 1RF clotrimazole-betamethasone 1-0.05 % cream 1 applic topical BID PRN (Reason: skin irritation) 28 Days Qty: 45 4RF escitalopram oxalate 20 mg tablet 20 mg PO DAILY Qty: 90 1RF atorvastatin 40 mg tablet 40 mg PO HS Qty: 90 1RF Follow-up/Referrals: Marcia Mathur DO [Primary Care Provider, [facility]] Time of Disposition: 11:00
== END 2025-01-13 11:07 | disposition home or self-care (01) ==
PROVIDERS: PCP Family Medicine
DX: B37.0 Candidal stomatitis (principal); E78.5 Hyperlipidemia, unspecified; E03.9 Hypothyroidism, unspecified; I10 Essential (primary) hypertension; Z85.3 Personal history of malignant neoplasm of breast; Z85.038 Personal history of other malignant neoplasm of large intestine; Z90.10 Acquired absence of unspecified breast and nipple; Z90.49 Acquired absence of other specified parts of digestive tract; Z79.82 Long term (current) use of aspirin
CPT/HCPCS: 87081; 87880; 99213; G0463

== ENCOUNTER 2025-03-15 12:01 | Outpatient (CLI) | payer MEDICARE, OTHER, SELFPAY ==
--- NOTE | ~2025-03-15 | DEXA_ITS ---
Bone Density Report Name: JUAN M GARG Age: 69 Sex: Female Ethnicity: White Date of : 1955 Indication: osteopenia; height loss; prior fracture; cancer; Referring Provider: REBECCA MATOS Study: Bone densitometry was performed. Exam Date: March 15, 2025 Accession number: [id number] Bone Density: Region BMD T-score Z-score Classification AP Spine(L1-L4) 0.883 -1.5 0.6 Osteopenia Femoral Neck (Left) 0.594 -2.3 -0.5 Osteopenia Total Hip (Left) 0.854 -0.7 0.8 Normal Femoral Neck (Right) 0.616 -2.1 -0.3 Osteopenia Total Hip (Right) 0.856 -0.7 0.8 Normal Total Hip Mean 0.855 -0.7 0.8 Normal World Health Organization criteria for BMD impression classify patients as: Normal (T-score at or above -1.0), Osteopenia (T-score between -1.0 and -2.5), or Osteoporosis (T-score at or below -2.5). 10-year Fracture Risk(1): Major Osteoporotic Fracture 19% Hip Fracture 3.9% Reported Risk Factors: [place] (), Neck BMD=0.594, BMI=36.1, previous fracture (1) FRAX(R) Version 3.08. Fracture probability calculated for an untreated patient. Fracture probability may be lower if the patient has received treatment. Previous Exams: Region Exam Age BMD T-score BMD Change BMD Change Date g/cm2 vs Baseline vs Previous AP Spine (L1-L4) 03/15/2025 69 0.883 -1.5 -0.012 (-1.4%) -0.012 (-1.4%) 07/04/2022 66 0.895 -1.4 Total Hip(Left) 03/15/2025 69 0.854 -0.7 0.073 (9.3%)# 0.073 (9.3%)# 07/04/2022 66 0.781 -1.3 Total Hip(Right) 03/15/2025 69 0.856 -0.7 0.068 (8.6%)# 0.068 (8.6%)# 07/04/2022 66 0.788 -1.3 *Denotes significance at 95% confidence level, LSC for AP Spine = 0.022 g/cm2, LSC for Total Hip = 0.027 g/cm2 # Denotes dissimilar scan types or analysis methods Clinical Information Provided by Patient: Has had a low trauma fracture Has used the following medications: Vitamin D, Calcium Has the following medical conditions: Cancer Patient maximum height was 62 Menopause Age: 46 No regular weight bearing exercise Drinks caffeinated beverages Onset of menses at age 11 Number of children 3 Impression: The patient has low bone mass, based on the Left Femoral Neck T-score. The patient has an estimated ten-year risk of hip fracture of 3.9% and an estimated ten-year risk of major fracture of 19%, based on the WHO FRAX algorithm. The patient has risk factors, including: previous fracture. No significant bone loss was observed. Discussion: BONE DENSITY IS LOW AT ONE OR MORE SKELETAL SITES. THE PATIENT'S BMD AND CLINICAL RISK FACTORS CONTRIBUTE TO THIS PATIENT'S INCREASED RISK OF FRACTURE. This patient's lowest T-score is low at one or more skeletal sites. It meets the World Health Organization's (WHO) criteria for ?low bone mass? (T-score between -1.0 and -2.5). The patient's 10-year risk of hip fracture as calculated by FRAX exceeds the threshold where pharmacological therapy is recommended by the National Osteoporosis Foundation (NOF). However, all treatment decisions require clinical judgment and consideration of individual patient factors, including patient preferences, comorbidities, previous drug use, risk factors not captured in the FRAX model (e.g., frailty, falls, vitamin D deficiency, increased bone turnover, interval significant decline in bone density) and possible under or overestimation of fracture risk by FRAX. The patient should follow a healthful lifestyle (good nutrition with adequate calcium and vitamin D, and appropriate weight-bearing exercise). Follow-Up: Consider a repeat BMD and Vertebral Fracture Assessment (VFA) exam in 2 years or sooner if medically necessary, to reassess this patient's status. Reported by: MELA on 03/15/2025 12:52:00 PM. Reviewed, dictated and finalized at location A.
--- OUTSIDE RECORDS SUMMARY | 2025-03-15 13:56 | XMS_ITS | Encounter Summary ---
Author Organization [facility] Address 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
--- OUTSIDE RECORDS SUMMARY | 2025-03-15 13:56 | XMS_ITS | Encounter Summary ---
Author Organization [facility] Address 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
--- OUTSIDE RECORDS SUMMARY | 2025-03-15 13:56 | XMS_ITS | Encounter Summary ---
Author Organization [facility] Address 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
--- OUTSIDE RECORDS SUMMARY | 2025-03-15 13:56 | XMS_ITS | Encounter Summary ---
Author Organization [facility] Address 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
--- OUTSIDE RECORDS SUMMARY | 2025-03-15 13:56 | XMS_ITS | Encounter Summary ---
Author Organization [facility] Address [address] [place] [address] Care Team Providers Care Squadron Worker Name Role Phone Noemí Virk MD Primary Care Provider [phone] Encounter Details Date Type Department Care Team (Latest Contact Info) Description 12/11/2002 Outpatient Historical HIS [facility] Esparza, Severo Watters MD NO ADDRESS ON FILE PERS HX OF BREAST MALIGNANCY (Primary Dx) Social History Tobacco Use Types Packs/Day Years Used Date Smoking Tobacco: Never Assessed Comments Unknown Sex and Gender Information Value Date Recorded Sex Assigned at Not on file 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
--- OUTSIDE RECORDS SUMMARY | 2025-03-15 13:56 | XMS_ITS | Encounter Summary ---
Author Organization [facility] Address [address] [place] [address] Care Team Providers Care Deputy Insurance Commissioner Name Role Phone Noemí Virk MD Primary Care Provider [phone] Encounter Details Date Type Department Care Team (Latest Contact Info) Description 11/01/2003 Outpatient Historical [facility] Severo Esparza MD NO ADDRESS ON FILE PERS HX OF BREAST MALIGNANCY (Primary Dx) Social History Tobacco Use Types Packs/Day Years Used Date Smoking Tobacco: Never Assessed Comments Unknown Sex and Gender Information Value Date Recorded Sex Assigned at Not on file Legal Sex Female 2:55 AM SIGN HANGER Gender Identity Not on file Sexual Orientation Not on file documented as of this encounter Plan of Treatment Not on file documented as of this encounter Visit Diagnoses Diagnosis Personal history of malignant neoplasm of breast- Primary documented in this encounter Care Teams Deputy Insurance Commissioner Relationship Specialty Start Date End Date Noemí [place] [address] [place] [address] PCP - General 02/21/07 04/10/09 documented as of this encounter
--- OUTSIDE RECORDS SUMMARY | 2025-03-15 13:56 | XMS_ITS | Encounter Summary ---
Author Organization [facility] Address 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
--- OUTSIDE RECORDS SUMMARY | 2025-03-15 13:56 | XMS_ITS | Encounter Summary ---
Author Organization [facility] Address 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
--- OUTSIDE RECORDS SUMMARY | 2025-03-15 13:56 | XMS_ITS | Encounter Summary ---
Author Organization [facility] Address 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
--- OUTSIDE RECORDS SUMMARY | 2025-03-15 13:56 | XMS_ITS | Encounter Summary ---
Author Organization [facility] Address 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
--- OUTSIDE RECORDS SUMMARY | 2025-03-15 13:56 | XMS_ITS | Encounter Summary ---
Author Organization [facility] Address [address] [place] [address] Care Team Providers Care Assembler Garment Form Name Role Phone Noemí Virk MD Primary Care Provider [phone] Encounter Details Date Type Department Care Team (Latest Contact Info) Description 07/02/2003 Outpatient Historical [facility] Severo Esparza MD NO ADDRESS ON FILE MALIGN NEOPL BREAST NOS (CMS/HCC) (Primary Dx) Social History Tobacco Use Types Packs/Day Years Used Date Smoking Tobacco: Never Assessed Comments Unknown Sex and Gender Information Value Date Recorded Sex Assigned at Not on file Legal Sex Female 2:55 AM CONICAL 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
--- OUTSIDE RECORDS SUMMARY | 2025-03-15 13:57 | XMS_ITS | Encounter Summary ---
Author Organization [facility] Address [address] [place] [address] Care Team Providers Care Trade Promotion Analyst Name Role Phone Sukhjinder Miller MD Primary Care Provider [phone] Encounter Details Date Type Department Care Team (Late st Contact Info) Description 03/02/2024 Lab Requisition [facility] - DermPath Lab [address] [facility], [place] [phone] Yissel Silverio DO [address] [facility] 3 [place] [address] Social History Tobacco Use Types Packs/Day Years Used Date Smoking Tobacco: Never Smokeless Tobacco: Never Alcohol Use Standard Drinks/Week Comments Yes 0 (1 standard drink = 0.6 oz pur e alcohol) Comments Unknown Sex and Gender Information Value Date Recorded Sex Assigned at Not on file Legal Sex Female 5:54 PM SPACE AND MISSILE OPERATIONS Gender Identity Not on file Sexual Orientation Not on file documented as of this encounter Plan of Treatment Not on file documented as of this encounter Procedures Procedure Name Priority Date/Time Associated Diagnosis Comments DERMATOPATHOLOGY Routine 03/02/2024 11:0 3 AM SPACE AND MISSILE OPERATIONS documented in this encounter Results * DERMATOPATHOLOGY (03/02/2024 11:03 AM SPACE AND MISSILE OPERATIONS) Case Report Dermatopathology Report Case: [id number] Authorizing Provider: Yissel Silverio DO Collected: 03/02/2024 11:03 AM Ordering Location: [facility] - Received: 03/03/2024 07:29 AM DermPath Lab Pathologist: Elissa Zamarripa MD Specimens: A) - Skin, nasal dorsum B) - Skin, right forearm 4 3:22 PM [employer] DERMATOPATHOLOGY LABORATORY Final Diagnosis Specimen A. SKIN, nasal dorsum: HYPERPLASTIC (HYPERTROPHIC) ACTINIC KERATOSIS, LICHENOID (L57.0) (see microscopic description) Specimen B. SKIN, right forearm: SQUAMOUS CELL CARCINOMA IN SITU (SIERRA'S DISEASE) (D04.61) 3:22 PM [facility] DERMATOPATHOLOGY LABORATORY at [address] [facility] Clinical History A-B: R/O NMSC 3:22 PM [facility] DERMATOPATHOLOGY LABORATORY Gross Description Specimen A: Received is one formalin filled container labeled with the patient's name and designated nasal dorsum. The specimen consists of a shave biopsy measuring 5x4x1 mm. Jar 0. Specimen B: Received is one formalin filled container labeled with the patient's name and designated right forearm. The specimen consists of a shave biopsy measuring 6x6x1 mm. Jar 0. 3:22 PM [facility] DERMATOPATHOLOGY LABORATORY Microscopic Description Specimen A. SKIN, nasal dorsum: There is hyperkeratosis alternating with parakeratosis. There is epidermal hyperplasia with disorderly maturation of keratinocytes with nuclear pleomorphism confined to the lower half of the epidermis. The dermis shows a band-like, chronic inflammatory infiltrate with occasional apoptotic keratinocytes and some basal vacuolar alteration.Addition al deeper sections were obtained and reviewed. Specimen B. SKIN, right forearm: The epidermis shows parakeratosis, full thickness disorderly maturation of keratinocytes, mitoses at different levels, and dyskeratotic cells. 3:22 PM [facility] DERMATOPATHOLOGY LABORATORY Disclaimer An external and internal positive and negative controls are appropriate for the histochemical, immunohistochemical and immunofluorescence stain(s) in this case (if any), except where stated explicitly. The performance characteristics of the stain(s) cited in this report were developed and its performance characteristic determined by the Dermatopathology Laboratory at [facility], directed by Dr. Dorothea Traore. These tests need not be, and therefore are not, approved by the [place] Food and Drug Administration. The tests are used for clinical purposes. Billing Codes Specimen Charges Stain Charges 53774 02306 1 1 4 3:22 PM [facility] DERMATOPATHOLOGY LABORATORY Embedded Images 3:22 PM [facility] DERMATOPATHOLOGY LABORATORY Pathology/Cytology TISSUE SPECIMEN FROM SKIN / Unknown 03/02/2024 11:03 AM [employer]ISSI[employer] OPERATIONS 03/03/2024 7:29 AM [employer]PER[employer] Miscellaneous samples (specimen) TISSUE SPECIMEN FROM SKIN / Unknown 03/02/2024 11:03 AM [employer]ISSI[employer] OPERATIONS 03/03/2024 7:29 AM [employer]SI[employer]PER[employer] us Yissel Silverio DO LAB - PATHOLOGY/CYTOLOGY ORDERABLES Final Result DERMATOPATHOLOGY LABORATORY [facility] - Department of Dermatology [facility] Specialized Medicine [address] [place] [address], [address] [phone] documented in this encounter Visit Diagnoses Not on filedocumented in this encounter Care Teams Trade Promotion Analyst Relationship Specialty Start Date End Date Sukhjinder Miller MD [address] [place] [address] [address] [place] [phone] PCP - General 08/09/15 documented as of this encounter
--- OUTSIDE RECORDS SUMMARY | 2025-03-15 13:57 | XMS_ITS | Clinical Summary ---
Author Organization [facility] [address] [facility] Address [address] [place] [address] Care Team Providers Care Powerhouse Mechanic Name Role Phone Jorge Alberto Chamorro MD Unavailable [phone] Sukhjinder Miller MD Primary Care Provider Allergies Active Allergy Reactions Criticality Noted Date Comments Adhesive Tape-Silicones Medications vitamin E (AQUASOL E) 100 unit capsule Take 100 Units by mouth daily Active calcium citrate-vitamin D3 (CITRACAL WITH D) 315 mg-6.25 mcg (250 unit) per tablet Take 1 tablet by mouth daily Active cyanocobalamin (Vitamin B-12) 1,000 mcg sublingual tablet Take 1,000 mcg by mouth daily Active multivitamin tablet,chewable Take by mouth Active fish oil-dha-epa 1,200-144-216 mg capsule Take by mouth Active calcium-vits G6-Y-U4-mineral s 166.75 mg- 166.75 unit capsule Take by mouth Active SUMAtriptan (IMITREX) 50 mg tablet Take 50 mg by mouth daily as needed Active valACYclovir (VALTREX) 1 gram tablet Take 1 g by mouth daily Active escitalopram (LEXAPRO) 20 mg tablet Take 1 tablet (20 mg total) by mouth daily 90 tablet 3 11/09/2021 Active levothyroxine (SYNTHROID) 112 mcg tablet Take 1 tablet (112 mcg total) by mouth daily 90 tablet 3 11/09/2021 Active omeprazole (PriLOSEC) 40 mg capsule Take 1 capsule (40 mg total) by mouth daily 90 capsule 3 11/09/2021 Active simvastatin (ZOCOR) 20 mg tablet Take 1 tablet (20 mg total) by mouth nightly 90 tablet 3 11/09/2021 Active lisinopril-hydr oCHLOROthiazide (ZESTORETIC) 20-12.5 mg per tabletIndicatio ns:hypertension Take 1 tablet by mouth daily 90 tablet 3 11/09/2021 Active lisinopriL (PRINIVIL,ZESTR IL) 10 mg tablet Take 1 tablet (10 mg total) by mouth daily 90 tablet 3 11/09/2021 Active oxybutynin (DITROPAN) 5 mg tablet Take 5 mg by mouth 2 (two) times a day 11/24/2021 Active Active Problems Problem Noted Date Diagnosed Date Nonsmoker 09/11/2023 Obstructive sleep apnea 05/16/2022 Periodic limb movement 05/16/2022 Psychophysiological insomnia 12/06/2021 Hypersomnia 12/06/2021 BMI 33.0-33.9,adult 12/06/2021 History of colon cancer 12/06/2021 History of breast cancer 12/06/2021 Fatigue 11/09/2021 Assessment & Plan (11/09/2021 6:41 PM CDT): Will refer for sleep study Sleep disturbance 11/09/2021 Assessment & Plan (11/09/2021 6:41 PM CDT): Will refer for sleep study Snoring 11/09/2021 Assessment & Plan (11/09/2021 6:41 PM CDT): Will refer for sleep study Bug bite 11/09/2021 Assessment & Plan (11/09/2021 6:42 PM CDT): Advised cortisone cream otc iram bid x 7 days Advised reporting to office if noticing skin darkening or streaking Chondromalacia of left knee 10/19/2021 Chondromalacia of right patella 10/19/2021 Essential hypertension 10/05/2021 Assessment & Plan (11/09/2021 6:40 PM CDT): We discussed bp, advised goal 120-130/80s. Will add lisinopril 10mg every day to zestoretic. Assessment & Plan (10/05/2021 7:41 PM CDT): Patient advised to continue medications the same at this time. They will monitor home bp with goal 120-130/80s. Fasting labs entered, will notify patient of results as available Gastroesophageal reflux disease 10/05/2021 Assessment & Plan (10/05/2021 7:44 PM CDT): Stable, continue medications the same at this time Hyperlipidemia 10/05/2021 Assessment & Plan (10/05/2021 7:41 PM CDT): Fasting labs entered, will notify patient of results as available Hypothyroidism 10/05/2021 Assessment & Plan (10/05/2021 7:42 PM CDT): Will evaluate further with labs, will notify pt of results as they become available. Migraine 10/05/2021 B12 deficiency 10/05/2021 Assessment & Plan (10/05/2021 7:41 PM CDT): Will evaluate further with labs, will notify pt of results as they become available. Leg pain, right 10/05/2021 Assessment & Plan (10/05/2021 12:31 PM CDT): Stat venous doppler of rle - call from rob, results are negative, reviewed with patient on phone. Will refer to ortho for further evaluation and treatment. LUQ abdominal pain 10/05/2021 Assessment & Plan (10/05/2021 7:42 PM CDT): Will evaluate further with labs and imaging, will notify pt of results as they become available. Advised reporting to the er if symptoms worsen. Palpitations 10/05/2021 Assessment & Plan (11/09/2021 6:42 PM CDT): We reviewed holter monitor Encouraged strict bp control Will refer to cardiology Assessment & Plan (10/05/2021 7:41 PM CDT): Will evaluate further with labs and 48h holter monitor, will notify pt of results as they become available Arthralgia of both hands 10/05/2021 Assessment & Plan (10/05/2021 7:43 PM CDT): Will evaluate further with labs Advised otc diclofenac gel as needed for hand pain Depressive disorder 09/30/2020 Assessment & Plan (10/05/2021 7:43 PM CDT): Stable, continue with lexapro same dosing at this time. Carcinoma of breast 01/29/2017 Assessment & Plan (10/05/2021 7:42 PM CDT): History of, continue with care per [facility] oncology Carcinoma of colon 01/29/2017 Assessment & Plan (10/05/2021 7:42 PM CDT): History of, continue with care per [facility] oncology Breast mass, right 06/08/2011 Resolved Problems Problem Noted Date Diagnosed Date Resolved Date Pain in limb 10/05/2021 10/05/2021 Encounter to establish care 10/05/2021 11/09/2021 Surgical History Surgery Date Site/Laterality Comments BREAST BIOPSY 05/07/2011 Right Medical History Medical History Date Comments Hypertension Hyperlipidemia GERD (gastroesophageal reflux disease) Irritable bowel syndrome Cancer (HCC) Family History Medical History Relation Name Comments Cancer Father Heart attack Father Asthma Mother Cancer Mother Cancer Sister Relation Name Status Comments Father Mother Sister Alive Social History Tobacco Use Types Packs/Day Years Used Date Smoking Tobacco: Never Smokeless Tobacco: Never AUDIT-C Answer Date Recorded Q1: How often do you have a drink containing alc ohol? Never 11/09/2021 Average Number of Drinks Not on file 022 Q3: How often do you have si x or more drinks on one occasion? Never 11/09/2021 PHQ-2 Answer Date Recorded PHQ-2 Total Score (If total score is 3 or more points, staff should administer the PHQ-9) 0 11/09/2021 Comments Unknown Sex and Gender Information Value Date Recorded Sex Assigned at Not on file Legal Sex Female 7:18 AM BANJO REPAIRER Gender Identity Not on file Sexual Orientation Not on file Last Filed Vital Signs Vital Sign Reading Time Taken Comments Blood Pressure 118/64 09/09/2024 9:22 AM CDT Pulse 89 09/09/2024 9:22 AM CDT Temperature 35.8 C (96.5 F) 09/09/2024 9:22 AM CDT Respiratory Rate 16 09/09/2024 9:22 AM CDT Oxygen Saturation 97% 09/09/2024 9:22 AM CDT Inhaled Oxygen Concentration - - Weight 88 kg (194 lb) 09/09/2024 9:22 AM CDT Height 157.5 cm (5' 2) 09/09/2024 9:22 AM CDT Body Mass Index 35.48 09/09/2024 9:22 AM CDT Plan of Treatment Health Maintenance Due Date Last Done Comments Breast Cancer Screening-Mammogram 1955 Colon Cancer Screening-Colonoscopy 1955 Hepatitis C Screening 1955 Hepatitis B Screening 1972 Zoster Vaccine (1 of 2) 2004 Well Visit 65+ 09/23/2019 Pneumococcal vaccine 65+ (2 of 2 - PCV20 or PCV21) 03/23/2021 03/23/2020 Depression Screening 11/09/2022 11/09/2021 Fall Risk Assessment 11/09/2022 11/09/2021 Osteoporosis Screening-Bone Density Scan 07/04/2024 07/04/2022 DTaP/Tdap/Td Vaccine (2 - Td or Tdap) 12/20/2024 12/20/2014 Covid-19 Vaccine (4 - 2024-2 6 season) 2024 02/27/2021, 07/05/2020, 05/25/2020 Influenza Vaccine (#1) 2024 7, 01/24/2016, 01/23/2016, Additional history exists Insurance [place] [employer] [place] [facility] [place] [address] [employer] [place] Care Teams Powerhouse Mechanic Relationship Specialty Start Date End Date Sukhjinder Miller MD [address] [facility] [address] [place], [place] [phone] PCP - General Internal Medicine 05/16/22 Jorge Alberto Chamorro MD [address] [place] [address] Consulting Physician Rheumatology 10/25/21
--- OUTSIDE RECORDS SUMMARY | 2025-03-15 13:57 | XMS_ITS | Encounter Summary ---
Author Organization [facility] Address [address] [facility] [place] [address] Care Team Providers Care Clerical Methods Analyst Name Role Phone Sukhjinder Miller MD Primary Care Provider [phone] Encounter Details Date Type Department Care Team (Late st Contact Info) Description 04/08/2024 Lab Requisition [facility] - DermPath Lab [address] [facility], [place] [phone] Yissel Silverio DO [address] [facility] 3 [place] [address] Social History Tobacco Use Types Packs/Day Years Used Date Smoking Tobacco: Never Smokeless Tobacco: Never Alcohol Use Standard Drinks/Week Comments Yes 0 (1 standard drink = 0.6 oz pur e alcohol) Comments Unknown Sex and Gender Information Value Date Recorded Sex Assigned at Not on file Legal Sex Female 5:54 PM WASTEWATER PROJECT MANAGER Gender Identity Not on file Sexual Orientation Not on file documented as of this encounter Plan of Treatment Not on file documented as of this encounter Procedures Procedure Name Priority Date/Time Associated Diagnosis Comments DERMATOPATHOLOGY Routine 04/08/2024 8:38 AM WASTEWATER PROJECT MANAGER documented in this encounter Results * DERMATOPATHOLOGY (04/08/2024 8:38 AM WASTEWATER PROJECT MANAGER) Case Report Dermatopathology Report Case: [id number] Authorizing Provider: Yissel Silverio DO Collected: 04/08/2024 08:38 AM Ordering Location: [facility] - Received: 04/08/2024 12:42 PM DermPath Lab Pathologist: Gia Kelly MD Specimen: Skin, right forearm 11:53 AM WASTEWATER PROJECT MANAGER DERMATOPATHOLOGY LABORATORY Final Diagnosis Specimen A. SKIN, right forearm: DERMAL SCAR RESIDUAL SQUAMOUS CELL CARCINOMA NOT IDENTIFIED (L90.5) 4 11:53 AM [facility] DERMATOPATHOLOGY LABORATORY at [address] WASTEWATER PROJECT MANAGER Clinical History BX proven SCCIS ; Check margins 11:53 AM [facility] DERMATOPATHOLOGY LABORATORY Gross Description Specimen A: Received is one formalin filled container labeled with the patient's name and designated right forearm. The specimen consists of a non-oriented ellipse of skin measuring 77c95p5 mm. The epidermal surface is unremarkable. The margin is inked green. The 12 o'clock and 6 o'clock tips are submitted in cassette 1. The remainder of the ellipse is serially sectioned and submitted in cassette 2 . Jar 0. 11:53 AM [facility] DERMATOPATHOLOGY LABORATORY Microscopic Description Specimen A. SKIN, right forearm: There are fibroblasts and collagen bundles oriented parallel to the skin surface. There are elongated blood vessels, some of which are oriented perpendicular to the skin surface. No residual squamous cell carcinoma is identified. 11:53 AM [facility] DERMATOPATHOLOGY LABORATORY Disclaimer An external and internal positive and negative controls are appropriate for the histochemical, immunohistochemical and immunofluorescence stain(s) in this case (if any), except where stated explicitly. The performance characteristics of the stain(s) cited in this report were developed and its performance characteristic determined by the Dermatopathology Laboratory at [facility], directed by Dr. Dorothea Traore. These tests need not be, and therefore are not, approved by the [place] Food and Drug Administration. The tests are used for clinical purposes. Billing Codes Specimen Charges Stain Charges 79355 1 11:53 AM [facility] DERMATOPATHOLOGY LABORATORY Embedded Images 11:53 AM [facility] DERMATOPATHOLOGY LABORATORY Pathology/Cytolo gy TISSUE SPECIMEN FROM SKIN / Unknown 04/08/2024 8:38 AM WASTEWATER PROJECT MANAGER 04/08/2024 12:42 PM [facility] us Yissel Silverio DO LAB - PATHOLOGY/CYTOLOGY ORDERABLES Final Result DERMATOPATHOLOGY LABORATORY [facility] - Department of Dermatology [address], [address] [phone] documented in this encounter Visit Diagnoses Not on filedocumented in this encounter Care Teams Clerical Methods Analyst Relationship Specialty Start Date End Date Sukhjinder Miller MD [address] [place] [address] [address] [place] [address] PCP - General 08/09/15 documented as of this encounter
--- OUTSIDE RECORDS SUMMARY | 2025-03-15 13:57 | XMS_ITS | Encounter Summary ---
Author Organization [facility] Address [address] [place] [address] Care Team Providers Care Senior Climate Advisor Name Role Phone Noemí Virk MD Primary Care Provider [phone] Encounter Details Date Type Department Care Team (Late st Contact Info) Description 07/29/2008 Outpatient Historical [facility], [address] Estrella Mustafa MD NO ADDRESS ON FILE Social History Tobacco Use Types Packs/Day Years Used Date Smoking Tobacco: Never Assessed Comments Unknown Sex and Gender Information Value Date Recorded Sex Assigned at Not on file Legal Sex Female 2:55 AM MARKET ANALYSIS DIRECTOR Gender Identity Not on file Sexual Orientation Not on file documented as of this encounter Plan of Treatment Not on file documented as of this encounter Procedures Procedure Name Priority Date/Time Associated Diagnosis Comments PATHOLOGY Routine 07/29/2008 8:37 AM CDT documented in this encounter Results * PATHOLOGY (07/29/2008 8:37 AM CDT) OUTSIDE CONSULTATION REPORT [address] [address] Patient: JUAN M GARG : 1955 Procedure Date: 07/29/2008 Accession Date: 07/29/2008 Case No: [id number] Ordering Dr: ESTRELLA MUSTAFA Case types AW, BW, FW, NW and SH are performed by [facility], [place], [place] OUTSIDE CONSULTATION REPORT DIAGNOSIS LARGE INTESTINE, SIGMOID, EXCISION: - ADENOCARCINOMA (T3, N1). LYMPH NODES, PERICOLONIC EXCISION: - ADENOCARCINOMA, METASTATIC (05/09). LARGE INTESTINE, SEGMENTAL ANASTOMOTIC ENDS, RESECTION: - NO PATHOLOGIC DIAGNOSIS. APPENDIX, EXCISION: - NO PATHOLOGIC DIAGNOSIS. Submitted By: Dr. Estrella Mustafa, [facility], [address] [facility], [address], [place] [address]; cc: [facility], Department of Pathology, [address] [place] [address] Date Received: 07/29/2008 Date Dictated: 07/29/2008 Billing Code: BP Patient Information/Histo ry/Diagnosis: None provided. Material Received: We receive from [facility] 13 slides labeled [id number]. The slides are returned. Microscopic: The accompanying report indicates the slides represent sections from a sigmoid colon resection performed 07/05/08. My review confirms the observations of the referring pathologist. The sigmoid colon displays low- grade adenocarcinoma that invades through muscularis propria into subserosa (T3) and is metastatic in one of eighteen lymph nodes (N1). Intralymphatic tumor emboli are present. There is no evidence of tumor in the surgical margins of resection. [facility] 07.29.08 ELECTRONIC SIGNATURE FOR JASMIN SINCLAIR M.D. - 07/29/08 03:15 pm INTERFACE SYSTEM 07/29/2008 8:37 AM CDT us Estrella Mustafa MD PATHOLOGY/CYTOLOGY ORDERABLE S Final Result INTERFACE SYSTEM Refer to clinic/hospital department documented in this encounter Visit Diagnoses Not on filedocumented in this encounter Care Teams Senior Climate Advisor Relationship Specialty Start Date End Date Noemí [place] [address] [place] [address] PCP - General 02/21/07 04/10/09 documented as of this encounter
--- OUTSIDE RECORDS SUMMARY | 2025-03-15 13:57 | XMS_ITS | Encounter Summary ---
Author Organization [facility] Address [address] [place] [address] Care Team Providers Care Submarine Operator Name Role Phone Noemí Virk MD Primary Care Provider [phone] Encounter Details Date Type Department Care Team (Latest Contact Info) Description 12/28/2004 Outpatient Historical HIS [facility] Esparza, Severo Watters MD NO ADDRESS ON FILE MALIGN NEOPL BREAST NOS (CMS/HCC) (Primary Dx) Social History Tobacco Use Types Packs/Day Years Used Date Smoking Tobacco: Never Assessed Comments Unknown Sex and Gender Information Value Date Recorded Sex Assigned at Not on file Legal Sex Female 2:55 AM CHIEF LIBRARIAN CIRCULATION DEPARTMENT Gender Identity Not on file Sexual Orientation Not on file documented as of this encounter Plan of Treatment Not on file documented as of this encounter Visit Diagnoses Diagnosis Malignant neoplasm of breast (female), unspecified site- Primary documented in this encounter Care Teams Submarine Operator Relationship Specialty Start Date End Date Noemí [place] [address] [address] [place] [phone] PCP - General 02/21/07 04/10/09 documented as of this encounter
--- OUTSIDE RECORDS SUMMARY | 2025-03-15 13:57 | XMS_ITS | Encounter Summary ---
Author Organization [facility] Address [address] [place] [address] Care Team Providers Care Federal Law Clerk Name Role Phone Noemí Virk MD Primary Care Provider [phone] Encounter Details Date Type Department Care Team (Latest Contact Info) Description 05/13/2002 Outpatient Historical HIS [facility] Esparza, Severo Watters MD NO ADDRESS ON FILE MALIGN NEOPL BREAST NOS (CMS/HCC) (Primary Dx) Social History Tobacco Use Types Packs/Day Years Used Date Smoking Tobacco: Never Assessed Comments Unknown Sex and Gender Information Value Date Recorded Sex Assigned at Not on file Legal Sex Female 2:55 AM CRANE FOLLOWER Gender Identity Not on file Sexual Orientation Not on file documented as of this encounter Plan of Treatment Not on file documented as of this encounter Visit Diagnoses Diagnosis Malignant neoplasm of breast (female), unspecified site- Primary documented in this encounter Care Teams Federal Law Clerk Relationship Specialty Start Date End Date Noemí [place] [address] [address] [place] [phone] PCP - General 02/21/07 04/10/09 documented as of this encounter
--- OUTSIDE RECORDS SUMMARY | 2025-03-15 13:57 | XMS_ITS | Encounter Summary ---
Author Organization [facility] Address [address] [place] [address] Care Team Providers Care Professor Of Marketing Name Role Phone Noemí Virk MD Primary Care Provider [phone] Encounter Details Date Type Department Care Team (Late st Contact Info) Description 01/02/2002 Outpatient Historical HIS MRI DEPT Keo Mcdaniel MD [address] [place] [phone] LUMP OR MASS IN BREAST (Primary Dx) Social History Tobacco Use Types Packs/Day Years Used Date Smoking Tobacco: Never Assessed Comments Unknown Sex and Gender Information Value Date Recorded Sex Assigned at Not on file Legal Sex Female 2:55 AM FLYING I INSTRUCTOR Gender Identity Not on file Sexual Orientation Not on file documented as of this encounter Plan of Treatment Not on file documented as of this encounter Visit Diagnoses Diagnosis Lump or mass in breast- Primary documented in this encounter Care Teams Professor Of Marketing Relationship Specialty Start Date End Date Noemí [place] [address] [facility] [place] [phone] PCP - General 02/21/07 04/10/09 documented as of this encounter
--- OUTSIDE RECORDS SUMMARY | 2025-03-15 13:57 | XMS_ITS | Encounter Summary ---
Author Organization [facility] Address [address] [facility] [place] [address] Care Team Providers Care Liquid Natural Gas Plant Operator Name Role Phone Sukhjinder Miller MD Primary Care Provider Encounter Details Date Type Department Care Team (Late st Contact Info) Description 09/02/2024 Lab Requisition [facility] - DermPath Lab [address] [place] [phone] Yissel Silverio DO [address] [facility] [address] [place] [address] Social History Tobacco Use Types Packs/Day Years Used Date Smoking Tobacco: Never Smokeless Tobacco: Never Alcohol Use Standard Drinks/Week Comments Yes 0 (1 standard drink = 0.6 oz pur e alcohol) Comments Unknown Sex and Gender Information Value Date Recorded Sex Assigned at Not on file Legal Sex Female 5:54 PM [employer] Gender Identity Not on file Sexual Orientation Not on file documented as of this encounter Plan of Treatment Not on file documented as of this encounter Procedures Procedure Name Priority Date/Time Associated Diagnosis Comments DERMATOPATHOLOGY Routine 09/02/2024 11:4 5 AM CDT documented in this encounter Results * DERMATOPATHOLOGY (09/02/2024 11:45 AM CDT) Case Report Dermatopathology Report Case: [id number] Authorizing Provider: Yissel Silverio DO Collected: 09/02/2024 11:45 AM Ordering Location: [facility] - Received: 09/03/2024 09:27 AM DermPath Lab Pathologist: Gia Kelly MD Specimen: Skin, right flank 3:47 PM CDT DERMATOPATHOLOGY LABORATORY Final Diagnosis Specimen A. 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 The specimen consists of a shave biopsy measuring [id number] mm. Jar 0. 3:47 PM CDT DERMATOPATHOLOGY LABORATORY Microscopic Description Specimen A. SKIN, right flank: This is a benign keratosis showing acanthosis with acantholysis in the lower layers of the epidermis and dyskeratosis in the upper layers. Ki67 highlights proliferative activity in the lower portions of the epidermis. 3:47 PM CDT DERMATOPATHOLOGY LABORATORY Disclaimer An external and internal positive and negative controls are appropriate for the histochemical, immunohistochemical and immunofluorescence stain(s) in this case (if any), except where stated explicitly. The performance characteristics of the stain(s) cited in this report were developed and its performance characteristic determined by the Dermatopathology Laboratory at [facility], directed by Dr. Dorothea Traore. These tests need not be, and therefore are not, approved by the [place] Food and Drug Administration. The tests are used for clinical purposes. Billing Codes Specimen Charges Stain Charges 62746 1 96927 1 3:47 PM CDT DERMATOPATHOLOGY LABORATORY Embedded Images 3:47 PM CDT DERMATOPATHOLOGY LABORATORY Pathology/Cytolo gy TISSUE SPECIMEN FROM SKIN / Unknown 09/02/2024 11:45 AM CDT 09/03/2024 9:27 AM CDT us Yissel Silverio DO LAB - PATHOLOGY/CYTOLOGY ORDERABLES Final Result DERMATOPATHOLOGY LABORATORY [facility] - Department of Dermatology [address], [address] [phone] documented in this encounter Visit Diagnoses Not on filedocumented in this encounter Care Teams Liquid Natural Gas Plant Operator Relationship Specialty Start Date End Date Sukhjinder Miller MD [address] [address] [address] [place] [address] PCP - General 08/09/15 documented as of this encounter
--- OUTSIDE RECORDS SUMMARY | 2025-03-15 13:57 | XMS_ITS | Encounter Summary ---
Author Organization [facility] Address 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
--- OUTSIDE RECORDS SUMMARY | 2025-03-15 13:57 | XMS_ITS | Encounter Summary ---
Author Organization [facility] Address 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 Gender Identity Not on file Sexual Orientation Not on file documented as of this encounter Plan of Treatment Not on file documented as of this encounter Procedures Procedure Name Priority Date/Time Associated Diagnosis Comments XR CHEST PA AND LATERAL 2 VW Routine 01/15/2008 10:46 AM CDT documented in this encounter Results * XR CHEST PA AND LATERAL (01/15/2008 10:46 AM CDT) Anatomical Region Laterality Modality Chest Other 01/15/2008 10:4 6 AM CDT Narrative 01/15/2008 11:32 AM CDT [facility] [address], [place] [address] Admit Date: 01/15/2008 JUAN M GARG Sex: F Admit Prov: ESTRELLA MUSTAFA Date: 1955 Primary Care Prov: CMRN: [id number] Room: MAYDA SSN: [id number] IMAGING SERVICES Ordering Prov: N/A Accession Number: [id number] Interpretation Chest 2 views 01/15/2008. History: Breast cancer.. Findings: No infiltrate, pneumothorax or pleural effusion is noted. The cardiac and mediastinal silhouettes are within normal limits. The visualized bony structures are unremarkable. Impression: Unremarkable study. No interval change from the previous study of 01/11/2008. . Dictated by: KAYLEEN MITCHELL 01/15/2008 11:31 Electronically signed by: KAYLEEN MITCHELL 01/15/2008 11:31 Procedure Note Kayleen Mitchell 01/15/2008 [facility] [address] [place], [place] [address] Admit Date: 01/15/2008 BRITANYJUAN M Iris Sex: F Admit Prov: ESTRELLA MUSTAFA Date: 1955 Primary Care Prov: CMRN: [id number] Room: [facility] SSN: [id number] IMAGING SERVICES Ordering Prov: N/A Interpretation Chest 2 views 01/15/2008. History: Breast cancer.. Findings: No infiltrate, pneumothorax or pleural effusion is noted.The cardiac and mediastinal silhouettes are within normal limits. The visualized bony structures are unremarkable. Impression: Unremarkable study. No interval change from the previousstudy of 01/11/2008. . Dictated by: KAYLEEN MITCHELL 01/15/2008 11:31 Electronically signed by: KAYLEEN MITCHELL 01/15/2008 11:31 Estrella Mustafa MD DIAGNOSTIC IMAGING ORDERABLE S Final Result documented in this encounter Visit Diagnoses Diagnosis Malignant neoplasm of breast (female), unspecified site documented in this encounter Care Teams Derrick Boat Captain Relationship Specialty Start Date End Date Noemí [place] [address] [address] [place] [phone] PCP - General 02/21/07 04/10/09 documented as of this encounter
--- OUTSIDE RECORDS SUMMARY | 2025-03-15 13:57 | XMS_ITS | Encounter Summary ---
Author Organization [facility] Address 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
--- OUTSIDE RECORDS SUMMARY | 2025-03-15 13:57 | XMS_ITS | Encounter Summary ---
Author Organization [facility] Address [address] [place] [address] Care Team Providers Care Typecasting Machine Operator Name Role Phone Noemí Virk MD Primary Care Provider [phone] Encounter Details Date Type Department Care Team (Latest Contact Info) Description 02/06/2002 Outpatient Historical HIS [facility] Esparza, Severo Watters MD NO ADDRESS ON FILE MALIGN NEOPL BREAST NOS (CMS/HCC) (Primary Dx) Social History Tobacco Use Types Packs/Day Years Used Date Smoking Tobacco: Never Assessed Comments Unknown Sex and Gender Information Value Date Recorded Sex Assigned at Not on file Legal Sex Female 2:55 AM DIRECTOR OF CLOUD SERVICES Gender Identity Not on file Sexual Orientation Not on file documented as of this encounter Plan of Treatment Not on file documented as of this encounter Visit Diagnoses Diagnosis Malignant neoplasm of breast (female), unspecified site- Primary documented in this encounter Care Teams Typecasting Machine Operator Relationship Specialty Start Date End Date Noemí [place] [address] [address] [place] [phone] PCP - General 02/21/07 04/10/09 documented as of this encounter
--- OUTSIDE RECORDS SUMMARY | 2025-03-15 13:57 | XMS_ITS | Encounter Summary ---
Author Organization [facility] Address 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/EXPORT AGENT Gender Identity Not on file Sexual Orientation Not on file documented as of this encounter Plan of Treatment Not on file documented as of this encounter Procedures Procedure Name Priority Date/Time Associated Diagnosis Comments US RETROPERITONEAL LIMITED Stat 07/26/2008 3:46 PM CDT POC URINALYSIS DIPSTICK AUTOMATED Routine 07/26/2008 1:23 PM CDT XR CHEST PA OR AP 1 VW Routine 9 1:20 PM CDT INFLUENZA VIRUS A AND B, ANTIGEN DETECTION Stat 07/26/2008 11:49 AM CDT CBC WITH DIFFERENTIAL Stat 07/26/2008 11:45 AM CDT BLOOD CULTURE Stat 07/26/2008 11:45 AM CDT BLOOD CULTURE Stat 07/26/2008 11:45 AM CDT C-REACTIVE PROTEIN Stat 07/26/2008 11 :45 AM CDT COMPREHENSIVE METABOLIC PANEL Stat 07/26/2008 11:45 AM CDT documented in this encounter Results * US RETROPERITONEAL LIMITED (07/26/2008 3:46 PM CDT) Anatomical Region Laterality Modality Pelvis Other 07/26/2008 3:4 6 PM CDT Narrative 07/26/2008 5:31 PM CDT [place] [address] [place], [place] [address] Admit Date: 07/26/2008 ROSARIO GARG Sex: F Admit Prov: ER, AUTHORIZED P Date: 1955 Primary Care Prov: CMRN: [id number] [facility] SS[facility]: [id number] IMAGING SERVICES Ordering Prov: N/A Accession Number: [id number] Interpretation ULTRASOUND RETROPERITONEUM LIMITED, 07/26/2008 Clinical History: Left upper quadrant inflammatory change on prior CT of 07/23/08. Findings: Sagittal and transverse real-time examination fails to reveal evidence of a left upper quadrant abscess. Included images of the spleen and left kidney appear normal. There is some soft tissue thickening anterior to the left kidney thought to represent the postsurgical inflammatory change noted in the anterior pararenal space on the previous CT of 07/23/2008. Conclusion: No evidence for left upper quadrant abscess at this time. . Dictated by: MIO WILKINS 07/26/2008 15:55 Electronically signed by: MIO WILKINS 07/26/2008 17:29 Transcribed: 07/26/2008 15:59 LE Procedure Note Provider, Historical - 07/26/2008 [place] [address] [address] [place], [place] [address] Admit Date: 07/26/2008 ROSARIO GARG Sex: F Admit Prov: ER, AUTHORIZED P Date: 1955 Primary Care Prov: CMRN: [id number] Room: ER-A SSN: [id number] IMAGING SERVICES Ordering Prov: N/A Interpretation ULTRASOUND RETROPERITONEUM LIMITED, 07/26/2008 Clinical History: Left upper quadrant inflammatory change on prior CTof 07/23/08. Findings: Sagittal and transverse real-time examination fails toreveal evidence of a left upper quadrant abscess. Included images of thespleen and left kidney appear normal. There is some soft tissue thickening anterior to the left kidney thought to represent the postsurgical inflammatory change noted in the anterior pararenal space on theprevious CT of 07/23/2008. Conclusion: No evidence for left upper quadrant abscess at this time. . Dictated by: MIO WILKINS 07/26/2008 15:55 Electronically signed by: MIO WILKINS 07/26/2008 17:29 Transcribed: 07/26/2008 15:59 LE us Kenney Hansen MD ORDERABLES Final Result * (ABNORMAL) POC URINALYSIS DIPSTICK AUTOMATED (07/26/2008 1:23 PM CDT) BLOOD UA Negative Negative [facility] PROTEIN UA Negative Negative [facility] LEUKOCYTE ESTERASE UA Trace(A) Negative [facility] UROBILINOGEN UA Normal <=1 mg/dL [facility] SPECIFIC GRAVITY UA 1.020 1.001 - 1.030 [facility] GLUCOSE UA Negative Negative [facility] COLOR UA Yellow [facility] NITRITE UA Negative Negative [facility] BILIRUBIN UA Negative Negative [facility] PH UA 5.0 5.0 - 8.0 [facility] KETONES UA Negative Negative [facility] CLARITY UA Clear [facility] 07/26/2008 1:23 PM CDT 07/26/2008 1:23 PM CDT us Authorized P Er POINT OF CARE TESTING Final Resu lt INTERFACE SYSTEM Refer to clinic/hospital department [facility] CLIA# [id number] [address] [address] * XR CHEST PA OR AP (07/26/2008 1:20 PM CDT) Anatomical Region Laterality Modality Chest Other 07/26/2008 1:20 PM CDT Narrative 07/26/2008 1:44 PM CDT [facility] [address] [place], [place] [address] Admit Date: 07/26/2008 AZUL GARGDoris Simmons Sex: F Admit Prov: ER, AUTHORIZED P Date: 1955 Primary Care Prov: CMRN: [id number] Room: -A N: [address] [place] [address] IMAGING SERVICES Ordering Prov: N/A Accession Number: [id number] Interpretation Chest single view 07/26/2008. History: Flu symptoms. History of cancer. Findings: A single AP view of the chest was obtained demonstrating no infiltrate, pneumothorax or pleural effusion. The cardiac and mediastinal silhouettes are unremarkable. The visualized bony structures are intact. Impression: Unremarkable study. . Dictated by: KAYLEEN ABRAHAM 07/26/2008 13:42 Electronically signed by: KAYLEEN ABRAHAM 07/26/2008 13:42 Procedure Note Kayleen Caban MD - 07/26/2008 [facility] [address] [place], [place] [address] Admit Date: 07/26/2008 BRITANY ROSARIO Simmons Sex: F Admit Prov: ER, AUTHORIZED P Date: 1955 Primary Care Prov: CMRN: [id number] Room: ER-A SSN: [id number] IMAGING SERVICES Ordering Prov: N/A Interpretation Chest single view 07/26/2008. History: Flu symptoms. History of cancer. Findings: A single AP view of the chest was obtained demonstratingno infiltrate, pneumothorax or pleural effusion. The cardiac andmediastinal silhouettes are unremarkable. The visualized bony structures areintact. Impression: Unremarkable study. . Dictated by: KAYLEEN ABRAHAM 07/26/2008 13:42 Electronically signed by: KAYLEEN ABRAHAM 07/26/2008 13:42 Kenney Hansen MD DIAGNOSTIC IMAGING ORDERABLES Fi nal Result * INFLUENZA VIRUS A AND B ANTIGEN (07/26/2008 11:49 AM CDT) FINAL REPORT Influenza A Antigen: Negative by ICT assay. Influenza B Antigen: Negative by ICT assay. -- Note: A negative does not rule out infection. [facility] 07/26/2008 11:4 9 AM CDT 07/26/2008 12:12 PM CDT Narrative INTERFACE SYSTEM - 07/26/2008 12:31 PM CDT Nasal wash specimens are optimal for test performance. Specimen collection of a nasopharyngeal swab is less sensitive for viral detection. Kenney Hansen MD MICROBIOLOGY - GENERAL ORDERABLE S Final Result Performing Organization Address City/[facility] Co de Phone Number INTERFACE SYSTEM Refer to clinic/hospital department [facility] CLIA# [id number] [address] [facility] [address] [place] [address] * (ABNORMAL) C-REACTIVE PROTEIN (07/26/2008 11:45 AM CDT) CRP 3.9(H) 0.0 - 0.8 mg/dL [facility] Blood specimen (specimen) 07/26/2008 11:45 AM CDT 07/26/2008 1:35 PM CDT Kenney Hansen MD CHEMISTRY ORDERABLES Final Resul t Performing Organization Address City/[facility] Co de Phone Number INTERFACE SYSTEM Refer to clinic/hospital department [facility] CLIA# [id number] [address] [facility] [place] [address] * (ABNORMAL) COMPREHENSIVE METABOLIC PANEL (07/26/2008 11:45 AM CDT) CALCIUM 9.5 8.6 - 10.2 mg/dL [facility] ALBUMIN 3.9 3.4 - 4.8 g/dL [facility] CHLORIDE 104 96 - 108 mmol/L [facility] GLUCOSE 115(H) 65 - 99 mg/dL [facility] CREATININE 0.95 0.51 - 0.95 mg/dL [facility] ALT 25 0 - 31 U/L [facility] SODIUM 137 135 - 145 mmol/L [facility] ALKALINE PHOSPHATASE 132(H) 35 - 104 U/L [facility] CO2 20(L) 22 - 30 mmol/L [facility] BILIRUBIN TOTAL 0.2 0.2 - 1.0 mg/dL [facility] POTASSIUM 4.1 3.5 - 4.9 mmol/L [facility] Comment: Moderate hemolysis present. Can cause significant falsely elevated result. Clinical judgement necessary. Redraw if indicated. TOTAL PROTEIN 7.3 6.3 - 8.6 g/dL [facility] AST 44(H) 12 - 32 U/L [facility] Comment:Hemolyzed: Result ma y be falsely elevated. BUN 16 6 - 20 mg/dL [facility] GFR, >60 >=60 mL/min/1. [address] [facility] GFR >60 >=60 mL/min/1. [address] [facility] Comment: Modification of Diet in Renal Disease (MDRD) study formula. Estimated GFR rate interpretative information for both Americans and non- Americans is available on the [facility] Intranet at: [email or web address] Select: Lab Policies and Procedures Select: Reference Ranges - GFR Blood specimen (specimen) 07/26/2008 11:45 AM CDT 07/26/2008 11:51 AM CDT Kenney Hansen MD CHEMISTRY ORDERABLES Edited INTERFACE SYSTEM Refer to clinic/hospital department [facility] CLIA# [id number] [address] [facility] [address] [place] [address] * (ABNORMAL) CBC WITH DIFFERENTIAL (07/26/2008 11:45 AM CDT) WBC 5.0 4.0 - 9.8 K/uL [facility] MCH 30.2 27.2 - 32.[address] [facility] MPV 10.0 9.3 - 12.[address] [facility] HEMATOCRIT 36.4 35.5 - 44.0 % [facility] RDW-STDEV 42.3 37.1 - 48.[address] [facility] RBC 4.01 3.90 - 4.90 M/uL [facility] MCHC 33.2 31.5 - 35.5 % [facility] MCV 90.8 82.0 - 99.[address] [facility] PLATELETS 250 140 - 350 K/uL [facility] HEMOGLOBIN 12.1 11.8 - 14.8 g/dL [facility] RDW 12.8 11.5 - 14.5 % [facility] LYMPHOCYTES 15(L) 16 - 45 % [facility] LYMPHOCYTE ABSOLUTE 0.73 0.70 - 4.50 K/uL [facility] BASOPHILS 0 0 - 2 % [facility] BASOPHILS ABSOLUTE 0.02 0.00 - 0.20 K/uL [facility] MONOCYTES 9 3 - 13 % [facility] MONOCYTE ABSOLUTE 0.43 0.10 - 1.30 K/uL [facility] NEUTROPHILS 71(H) 45 - 70 % [facility] NEUTROPHIL ABSOLUTE 3.57 1.90 - 7.00 K/uL [facility] EOSINOPHILS 6 0 - 7 % [facility] EOSINOPHIL ABSOLUTE 0.28 0.00 - 0.70 K/uL [facility] Blood specimen (specimen) 07/26/2008 11:45 AM CDT 07/26/2008 11:51 AM CDT Kenney Hansen MD HEMATOLOGY ORDERABLES Edited Performing Organization Address [facility] Phone Number INTERFACE SYSTEM Refer to clinic/hospital department [facility] CLIA# [id number] [address] [place] [address] * BLOOD CULTURE (07/26/2008 11:45 AM CDT) REPORT/SPECIMEN COMMENT Specimen processed with suboptimal blood volume collected. Recommended adult blood volume is 8-10mL per bottle. [facility] PRELIMINARY REPORT No growth to date. Culture in progress [facility] FINAL REPORT No growth [address] [facility] Blood specimen (specimen) 07/26/2008 11:45 AM CDT 07/26/2008 1:53 PM CDT us Kenney Hansen MD MICROBIOLOGY - GENERAL ORDERABLE S Final Result Performing Organization Address [facility] Phone Number INTERFACE SYSTEM Refer to clinic/hospital department [facility] CLIA# [id number] [address] [place] [address] * BLOOD CULTURE (07/26/2008 11:45 AM CDT) REPORT/SPECIMEN COMMENT Specimen processed with suboptimal blood volume collected. Recommended adult blood volume is 8-10mL per bottle. [facility] PRELIMINARY REPORT No growth to date. Culture in progress [facility] FINAL REPORT No growth [address] [facility] Blood specimen (specimen) 07/26/2008 11:45 AM CDT 07/26/2008 1:54 PM CDT us Kenney Hansen MD MICROBIOLOGY - GENERAL ORDERABLE S Final Result INTERFACE SYSTEM Refer to clinic/hospital department [facility] CLIA# [id number] [address] [place] [address] documented in this encounter Visit Diagnoses Not on filedocumented in this encounter Care Teams Supervisor Metal Placing Relationship Specialty Start Date End Date Noemí [place] [address] [facility] [place] [phone] PCP - General 02/21/07 04/10/09 documented as of this encounter
--- OUTSIDE RECORDS SUMMARY | 2025-03-15 13:57 | XMS_ITS | Encounter Summary ---
Author Organization [facility] Address 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
--- OUTSIDE RECORDS SUMMARY | 2025-03-15 13:57 | XMS_ITS | Clinical Summary ---
Author Organization [facility] Address [address] [place] [address] Phone Care Team Providers Care Floor Finisher Helper Name Role Phone Unavailable Primary Care Provider Unavailabl e Allergies Active Allergy Reactions Criticality Noted Date Comments Adhesive Tape Rash Low 01/12/2009 Cefuroxime Axetil Rash Low 06/01/2011 Medications escitalopram (LEXAPRO) 20 mg Oral tablet Take 20 mg by mouth daily. Active omeprazole (PRILOSEC) 10 mg Oral CpDR Take 20 mg by mouth daily. Active lisinopril-hydr ochlorothiazide (ZESTORETIC) 20-12.5 mg Oral tablet Take 2 Tablets by mouth daily . 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 Active calcium carbonate (CALTRATE) 600 mg (1,500 mg) Oral Tab Take 600 mg by mouth daily. Active simvastatin (ZOCOR) 40 mg tablet Take 40 mg by mouth daily with supper. Active cholecalciferol , Vitamin D3, (VITAMIN D3) 1,000 unit Capsule Take 1,000 Units by mouth daily. Active VITAMIN E ORAL Take by mouth. Active multivitamin (DAILY-CHRISTINE) tablet Take 1 Tablet by mouth daily. Active Active Problems Problem Noted Date Diagnosed Date Breast mass, right 06/08/2011 Encounters Date Type Department Care Team Description 02/10/2025 External Device Data [facility] ABSTRACTION Provider, Abstract 02/09/2025 External Device Data [facility] ABSTRACTION Provider, Abstract 01/12/2025 External Device Data [facility] ABSTRACTION Provider, Abstract 01/05/2025 External Device Data [facility] ABSTRACTION Provider, Abstract 12/29/2024 External Device Data [facility] ABSTRACTION Provider, Abstract from Last 3 Months Family History Medical History Relation Name Comments Breast Cancer Neg Hx Cancer Neg Hx Ovarian Cancer Neg Hx Social History Tobacco Use Types Packs/Day Years Used Date Smoking Tobacco: Never Tobacco Cessation:Counseling Given: Not Answered Alcohol Use Standard Drinks/Week Comments No 0 (1 standard drink = 0.6 oz pur e alcohol) Comments No Sex and Gender Information Value Date Recorded Sex Assigned at Not on file 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 Gender Identity Not on file Sexual Orientation Not on file Occupation Industry Job Start Date Job End Date Not on file Not on file Not on file Not on file Not on file Not on file Not on file Not on file Not on file Not on file Not on file Not on file Not on file Not on file Not on file Not on file Last Filed Vital Signs Vital Sign Reading Time Taken Comments Blood Pressure 130/80 12/24/2023 11:18 AM CDT Pulse 61 12/24/2023 11:18 AM CDT Temperature 36.2 C (97.2 F) 12/24/2023 11:18 AM CDT Respiratory Rate 16 10/26/2021 8:38 AM CDT Oxygen Saturation 98% 12/24/2023 11: 18 AM CDT Inhaled Oxygen Concentration - - Weight 85.6 kg (188 lb 11.2 oz) 024 11:18 AM CDT Height 157.5 cm (5' 2) 12/24/2023 11:1 8 AM CDT Body Mass Index 34.51 12/24/2023 11:18 AM CDT Plan of Treatment Health Maintenance Due Date Last Done Comments ZOSTER VACCINE (1 of 2) 2004 PNEUMOCOCCAL VACCINE 50+ YEA RS (2 of 2 - PCV20 or PCV21) 03/23/2021 03/23/2020 INFLUENZA VACCINE (#1) 2024 3, 03/29/2021, 03/23/2020, Additional history exists DTAP/TDAP/TD VACCINES (2 - T d or Tdap) 12/20/2024 12/20/2014 BREAST CANCER SCREENING 03/06/2025 03/06/20 24, 12/20/2022, 11/16/2021, Additional history exists OSTEOPOROSIS SCREENING 07/06/2027 3, 07/04/2022, 06/01/2020 RSV VACCINE (60+ or ) (1 - 1-dose 75+ series) 2029 Procedures Procedure Name Priority Date/Time Associated Diagnosis Comments MAMMO DIAG UNI RIGHT 3D SHARON W OR WO CAD Routine 03/06/2024 10:04 AM WALLPAPERER HELPER H/O left mastectomy Malignant neoplasm of ascending colon (CMS/HCC) H/O malignant neoplasm of breast Vitamin D deficiency from Last 3 Months or Most Recently Relevant to Health Maintenance Results * MAMMO 3D SAHRON DIAGNOSTIC UNI RT 3D W OR WO CAD (03/06/2024 10:04 AM WALLPAPERER HELPER) Anatomical Region Laterality Modality Breast Right Mammography 03/06/2024 10:0 4 AM WALLPAPERER HELPER Impressions 03/06/2024 11:08 AM WALLPAPERER HELPER IMPRESSION: Normal right breast diagnostic mammogram. OVERALL FINAL ASSESSMENT: BI-RADS CATEGORY 1 - Negative DICTATION LOCATION: [facility] 03/06/2024 11:08 AM WALLPAPERER HELPER EXAM: UNILATERAL RIGHT DIGITAL DIAGNOSTIC MAMMOGRAM WITH CAD WITH TOMOSYNTHESIS DATE: 03/06/2024 10:04 AM HISTORY: Prior left mastectomy. TECHNIQUE: Low Dose full field Digital Breast tomosynthesis examination was performed with 2D and 3D acquisitions. Examination is read in conjunction with computer aided detection. COMPARISON STUDIES: December 20, 2022 through October 04, 2015. PARENCHYMAL COMPOSITION: There are scattered areas of fibroglandular density. FINDINGS: There is no evidence of mass, focal asymmetry, malignant calcification or architectural distortion in either breast. Procedure Note Ruperto Cummings MD - 03/06/2024 EXAM: UNILATERAL RIGHT DIGITAL DIAGNOSTIC MAMMOGRAM WITH CAD WITH TOMOSYNTHESIS DATE: 03/06/2024 10:04 AM HISTORY: Prior left mastectomy. TECHNIQUE: Low Dose full field Digital Breast tomosynthesis examination was performed with 2D and 3D acquisitions. Examination is read in conjunction with computer aided detection. COMPARISON STUDIES: December 20, 2022 through October 04, 2015. PARENCHYMAL COMPOSITION: There are scattered areas of fibroglandular density. FINDINGS: There is no evidence of mass, focal asymmetry, malignant calcification or architectural distortion in either breast. IMPRESSION: Normal right breast diagnostic mammogram. OVERALL FINAL ASSESSMENT: BI-RADS CATEGORY 1 - Negative DICTATION LOCATION: [facility] Yudi Palomares MD MAMMO ORDERABLES Final Result from Last 3 Months or Most Recently Relevant to Health Maintenance Insurance MEDICARE PART A AND B [employer] Advance Directives For more information, please contact: [phone] * Full Code (Latest Code Status on File) Date Activated Date Inactivated Comments 06/08/2011 1:42 PM 06/08/2011 6:30 PM * Full Code Date Activated Date Inactivated Comments 06/08/2011 9:43 AM 06/08/2011 1:42 PM * Full Code Date Activated Date Inactivated Comments 05/10/2009 7:02 AM 05/11/2009 2:01 AM
--- OUTSIDE RECORDS SUMMARY | 2025-03-15 13:57 | XMS_ITS | Encounter Summary ---
Author Organization [facility] Address 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
--- OUTSIDE RECORDS SUMMARY | 2025-03-15 13:57 | XMS_ITS | Encounter Summary ---
Author Organization [facility] Address [address] [place] [address] Care Team Providers Care Credit Union Teller Name Role Phone Noemí Virk MD Primary Care Provider [phone] Encounter Details Date Type Department Care Team (Late st Contact Info) Description 01/16/2002 Outpatient Historical [facility] [address] 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
--- OUTSIDE RECORDS SUMMARY | 2025-03-15 13:57 | XMS_ITS | Encounter Summary ---
Author Organization [facility] Address 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 [place] [phone] PCP - General 02/21/07 04/10/09 documented as of this encounter
--- OUTSIDE RECORDS SUMMARY | 2025-03-15 13:57 | XMS_ITS | Encounter Summary ---
Author Organization [facility] Address 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
--- OUTSIDE RECORDS SUMMARY | 2025-03-15 13:57 | XMS_ITS | Encounter Summary ---
Author Organization [facility] Address 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 Gender Identity Not on file Sexual Orientation Not on file documented as of this encounter Plan of Treatment Not on file documented as of this encounter Procedures Procedure Name Priority Date/Time Associated Diagnosis Comments ACUTE HEPATITIS PANEL Stat 10/19/2008 9:25 AM CDT HEPATITIS B SURFACE ANTIGEN Stat 10/19/2008 9:25 AM CDT HEPATITIS C ANTIBODY Stat 10/19/2008 9:25 AM CDT HEPATITIS B CORE IGM Stat 10/19/2008 9:25 AM CDT HEPATITIS A IGM Stat 10/19/2008 9:25 AM CDT CBC WITH DIFFERENTIAL Stat 10/19/2008 9:25 AM CDT COMPREHENSIVE METABOLIC PANEL Stat 10/19/2008 9:25 AM CDT CBC WITH DIFFERENTIAL Stat 10/05/2008 10:42 AM CDT CEA Stat 10/05/2008 10:42 AM CDT COMPREHENSIVE METABOLIC PANEL Stat 10/05/2008 10:42 AM CDT CBC WITH DIFFERENTIAL Stat 09/28/2008 8:43 AM CDT CEA Stat 09/28/2008 8:43 AM CDT COMPREHENSIVE METABOLIC PANEL Stat 09/28/2008 8:43 AM CDT documented in this encounter Results * (ABNORMAL) COMPREHENSIVE METABOLIC PANEL (10/19/2008 9:25 AM CDT) CALCIUM 9.7 8.6 - 10.2 mg/dL [facility] ALBUMIN 4.0 3.4 - 4.8 g/dL [facility] CHLORIDE 110(H) 96 - 108 mmol/L [facility] CREATININE 0.81 0.51 - 0.95 mg/dL [facility] ALT 45(H) 0 - 31 U/L [facility] SODIUM 143 135 - 145 mmol/L [facility] ALKALINE PHOSPHATASE 244(H) 35 - 104 U/L [facility] CO2 22 22 - 30 mmol/L [facility] BILIRUBIN TOTAL 0.3 0.2 - 1.0 mg/dL [facility] POTASSIUM 3.4(L) 3.5 - 4.9 mmol/L [facility] TOTAL PROTEIN 7.1 6.3 - 8.6 g/dL [facility] GLUCOSE 128(H) 65 - 99 mg/dL [facility] AST 34(H) 12 - 32 U/L [facility] BUN 14 6 - 20 mg/dL [facility] GFR, >60 >=60 mL/min/1. 7 sq meter [facility] GFR >60 >=60 mL/min/1. 7 sq meter [facility] Comment: Modification of Diet in Renal Disease (MDRD) study formula. Estimated GFR rate interpretative information for both Americans and non- Americans is available on the [facility] Intranet at: [email or web address] Select: Lab Policies and Procedures Select: Reference Ranges - GFR 10/19/2008 9:25 AM CDT 10/19/2008 9:31 AM CDT Severo Esparza MD CHEMISTRY ORDERABLES Edited INTERFACE SYSTEM Refer to clinic/hospital department [facility] CLIA# [id number] [address] [place] [address] * (ABNORMAL) CBC WITH DIFFERENTIAL (10/19/2008 9:25 AM CDT) MCHC 34.9 31.5 - 35.5 % [facility] HEMATOCRIT 34.7(L) 35.5 - 44.0 % [facility] MCV 89.9 82.0 - 99.0 fL [facility] HEMOGLOBIN 12.1 11.8 - 14.8 g/dL [facility] RBC 3.86(L) 3.90 - 4.90 M/uL [facility] RDW 17.3(H) 11.5 - 14.5 % [facility] WBC 4.8 4.0 - 9.8 K/uL [facility] MCH 31.3 27.2 - 32.6 pg [facility] RDW-STDEV 56.7(H) 37.1 - 48.7 fL [facility] NEUTROPHILS 71(H) 45 - 70 % [facility] NEUTROPHIL ABSOLUTE 3.42 1.90 - 7.00 K/uL [facility] EOSINOPHILS 1 0 - 7 % [facility] EOSINOPHIL ABSOLUTE 0.05 0.00 - 0.70 K/uL [facility] LYMPHOCYTES 19 16 - 45 % [facility] LYMPHOCYTE ABSOLUTE 0.91 0.70 - 4.50 K/uL [facility] BASOPHILS 0 0 - 2 % [facility] BASOPHILS ABSOLUTE 0.01 0.00 - 0.20 K/uL [facility] MONOCYTES 8 3 - 13 % [facility] MONOCYTE ABSOLUTE 0.40 0.10 - 1.30 K/uL [facility] MPV 9.2(L) 9.3 - 12.4 fL [facility] PLATELETS 86(L) 140 - 350 K/uL [facility] Comment:Platelets verified b y smear review. 10/19/2008 9:25 AM CDT 10/19/2008 9:31 AM CDT Severo Esparza MD HEMATOLOGY ORDERABLES Edited Performing Organization Address City/[facility] de Phone Number INTERFACE SYSTEM Refer to clinic/hospital department [facility] CLIA# [id number] [address] [place] [address] * ACUTE HEPATITIS PANEL (10/19/2008 9:25 AM CDT) COMMENT See Additional Orderables [facility] 10/19/2008 9:25 AM CDT 10/19/2008 9:31 AM CDT us Severo Esparza MD CHEMISTRY ORDERABLES Final R esult Performing Organization Address City/[facility] Co de Phone Number INTERFACE SYSTEM Refer to clinic/hospital department [facility] CLIA# [id number] [address] [place] [address] * HEPATITIS B CORE IGM (10/19/2008 9:25 AM CDT) HEPATITIS B CORE IGM NON-REACTI VE NON-REACT BEST [facility] Comment: Lab test performed by: [employer] [id number] [place] [address] OFELIA SRINIVASAN MD 10/19/2008 9:25 AM CDT 10/19/2008 9:54 AM CDT Severo Esparza MD CHEMISTRY ORDERABLES Final R esult Performing Organization Address [facility] Phone Number INTERFACE SYSTEM Refer to clinic/hospital department [facility] CLIA# [id number] [address] [place] [address] * HEPATITIS C ANTIBODY (10/19/2008 9:25 AM CDT) Pathologist [facility] SIGNAL TO CUT OFF 0.12 <1.00 [facility] Comment: Lab test performed by: [employer] [id number] [address] BLApp[place] [address] OFELIA SRINIVASAN MD HEPATITIS C AB NON-REACTI VE NON-REACT BEST [facility] 10/19/2008 9:25 AM CDT 10/19/2008 9:54 AM CDT Severo Esparza MD CHEMISTRY ORDERABLES Final R esult Performing Organization Address [facility] de Phone Number INTERFACE SYSTEM Refer to clinic/hospital department [facility] CLIA# [id number] [address] [place] [address] * HEPATITIS A IGM (10/19/2008 9:25 AM CDT) HEPATITIS A IGM NON-REACTI VE NON-REACT BEST [facility] Comment: Lab test performed by: [employer] [id number] [address] CRUZAppThwack VARSHAStylechi [employer] [address] OFELIA SRINIVASAN MD 10/19/2008 9:25 AM CDT 10/19/2008 9:54 AM CDT Severo Esparza MD CHEMISTRY ORDERABLES Final R esult Performing Organization Address [facility] Phone Number INTERFACE SYSTEM Refer to clinic/hospital department [facility] CLIA# [id number] [address] [place] [address] * HEPATITIS B SURFACE ANTIGEN (10/19/2008 9:25 AM CDT) [facility] HEPATITIS B SURFACE AG NON-REACTI VE NON-REACT BEST [facility] Comment: Lab test performed by: [employer] [id number] [address] [address] OFELIA SRINIVASAN MD 10/19/2008 9:25 AM CDT 10/19/2008 9:54 AM CDT Severo Esparza MD CHEMISTRY ORDERABLES Final R esult Performing Organization Address [facility] Phone Number INTERFACE SYSTEM Refer to clinic/hospital department [facility] CLIA# [id number] [address] [place] [address] * (ABNORMAL) COMPREHENSIVE METABOLIC PANEL (10/05/2008 10:42 AM CDT) [facility] CALCIUM 9.4 8.6 - 10.2 mg/dL [facility] ALBUMIN 4.0 3.4 - 4.8 g/dL [facility] CHLORIDE 106 96 - 108 mmol/L [facility] CREATININE 0.80 0.51 - 0.95 mg/dL [facility] ALT 40(H) 0 - 31 U/L [facility] SODIUM 138 135 - 145 mmol/L [facility] ALKALINE PHOSPHATASE 213(H) 35 - 104 U/L [facility] CO2 23 22 - 30 mmol/L [facility] BILIRUBIN TOTAL 0.2 0.2 - 1.0 mg/dL [facility] POTASSIUM 3.5 3.5 - 4.9 mmol/L [facility] TOTAL PROTEIN 7.1 6.3 - 8.6 g/dL [facility] GLUCOSE 154(H) 65 - 99 mg/dL [facility] AST 34(H) 12 - 32 U/L [facility] BUN 17 6 - 20 mg/dL [facility] GFR, >60 >=60 mL/min/1. 7 sq meter [facility] GFR >60 >=60 mL/min/1. 7 sq meter [facility] Comment: Modification of Diet in Renal Disease (MDRD) study formula. Estimated GFR rate interpretative information for both Americans and non- Americans is available on the [facility] Intranet at: [email or web address] MDcity [email or web address], [email or web address] Select: Lab Policies and Procedures Select: Reference Ranges - GFR 10/05/2008 10:4 2 AM CDT 10/05/2008 10:45 AM CDT us Severo Esparza MD CHEMISTRY ORDERABLES Edited INTERFACE SYSTEM Refer to clinic/hospital department [facility] CLIA# [id number] [address] [place] [address] * CEA (10/05/2008 10:42 AM CDT) CEA 1.6 <=3.8 ng/mL [facility] Comment: Reference Range: Non-smoker: </= 3.8 ng/mL Smoker: < 5.5 ng/mL Values from different assay methods cannot be used interchangeably because the concentration of CEA in any given specimen can vary due to differences in assay methods and reagent specificity. Serum CEA levels, regardless of value, should not be interpreted as absolute evidence of the presence or absence of malignant disease. Performed on naaptol E170 System. 10/05/2008 10:4 2 AM CDT 10/05/2008 10:46 AM CDT us Severo Esparza MD CHEMISTRY ORDERABLES Edited INTERFACE SYSTEM Refer to clinic/hospital department [facility] CLIA# [id number] [address] [place] [address] * (ABNORMAL) CBC WITH DIFFERENTIAL (10/05/2008 10:42 AM CDT) [facility] 34.1 31.5 - 35.5 % [facility] MCV 91.2 82.0 - 99.0 fL [facility] PLATELETS 126(L) 140 - 350 K/uL [facility] HEMOGLOBIN 12.0 11.8 - 14.8 g/dL [facility] RDW 17.5(H) 11.5 - 14.5 % [facility] MCH 31.1 27.2 - 32.6 pg [facility] MPV 9.2(L) 9.3 - 12.4 fL [facility] HEMATOCRIT 35.2(L) 35.5 - 44.0 % [facility] WBC 3.4(L) 4.0 - 9.8 K/uL [facility] RDW-STDEV 57.8(H) 37.1 - 48.7 fL [facility] RBC 3.86(L) 3.90 - 4.90 M/uL [facility] EOSINOPHILS 2 0 - 7 % [facility] EOSINOPHIL ABSOLUTE 0.05 0.00 - 0.70 K/uL [facility] LYMPHOCYTES 34 16 - 45 % [facility] LYMPHOCYTE ABSOLUTE 1.16 0.70 - 4.50 K/uL [facility] BASOPHILS 0 0 - 2 % [facility] BASOPHILS ABSOLUTE 0.01 0.00 - 0.20 K/uL [facility] MONOCYTES 13 3 - 13 % [facility] MONOCYTE ABSOLUTE 0.43 0.10 - 1.30 K/uL [facility] NEUTROPHILS 52 45 - 70 % [facility] NEUTROPHIL ABSOLUTE 1.77(L) 1.90 - 7.00 K/uL [facility] 10/05/2008 10:4 2 AM CDT 10/05/2008 10:45 AM CDT us Severo Esparza MD HEMATOLOGY ORDERABLES Edited INTERFACE SYSTEM Refer to clinic/hospital department [facility] CLIA# [id number] [address] [place] [address] * (ABNORMAL) COMPREHENSIVE METABOLIC PANEL (09/28/2008 8:43 AM CDT) CO2 20(L) 22 - 30 mmol/L [facility] BILIRUBIN TOTAL 0.2 0.2 - 1.0 mg/dL [facility] CREATININE 0.89 0.51 - 0.95 mg/dL [facility] ALT 71(H) 0 - 31 U/L [facility] POTASSIUM 3.5 3.5 - 4.9 mmol/L [facility] TOTAL PROTEIN 7.1 6.3 - 8.6 g/dL [facility] ALKALINE PHOSPHATASE 301(H) 35 - 104 U/L [facility] BUN 17 6 - 20 mg/dL [facility] ALBUMIN 4.0 3.4 - 4.8 g/dL [facility] CHLORIDE 111(H) 96 - 108 mmol/L [facility] GLUCOSE 113(H) 65 - 99 mg/dL [facility] AST 59(H) 12 - 32 U/L [facility] SODIUM 142 135 - 145 mmol/L [facility] CALCIUM 9.1 8.6 - 10.2 mg/dL [facility] GFR, >60 >=60 mL/min/1. 7 sq meter [facility] GFR >60 >=60 mL/min/1. 7 sq meter [facility] Comment: Modification of Diet in Renal Disease (MDRD) study formula. Estimated GFR rate interpretative information for both Americans and non- Americans is available on the [facility] Intranet at: [email or web address] Select: Lab Policies and Procedures Select: Reference Ranges - GFR 09/28/2008 8:43 AM CDT 09/28/2008 8:54 AM CDT Severo Esparza MD CHEMISTRY ORDERABLES Edited INTERFACE SYSTEM Refer to clinic/hospital department [facility] CLIA# [id number] [address] [place] [address] * CEA (09/28/2008 8:43 AM CDT) CEA 2.1 <=3.8 ng/mL [facility] Comment: Reference Range: Non-smoker: </= 3.8 ng/mL Smoker: < 5.5 ng/mL Values from different assay methods cannot be used interchangeably because the concentration of CEA in any given specimen can vary due to differences in assay methods and reagent specificity. Serum CEA levels, regardless of value, should not be interpreted as absolute evidence of the presence or absence of malignant disease. Performed on naaptol E170 System. 09/28/2008 8:43 AM CDT 09/28/2008 8:54 AM CDT us Severo Esparza MD CHEMISTRY ORDERABLES Edited INTERFACE SYSTEM Refer to clinic/hospital department [facility] CLIA# [id number] [address] [place] [address] * (ABNORMAL) CBC WITH DIFFERENTIAL (09/28/2008 8:43 AM CDT) RDW 17.8(H) 11.5 - 14.5 % [facility] WBC 4.2 4.0 - 9.8 K/uL [facility] MCH 30.6 27.2 - 32.6 pg [facility] HEMATOCRIT 33.2(L) 35.5 - 44.0 % [facility] RDW-STDEV 58.1(H) 37.1 - 48.7 fL [facility] RBC 3.63(L) 3.90 - 4.90 M/uL [facility] MCHC 33.4 31.5 - 35.5 % [facility] MCV 91.5 82.0 - 99.0 fL [facility] HEMOGLOBIN 11.1(L) 11.8 - 14.8 g/dL [facility] LYMPHOCYTES 22 16 - 45 % [facility] LYMPHOCYTE ABSOLUTE 0.92 0.70 - 4.50 K/uL [facility] BASOPHILS 1 0 - 2 % [facility] BASOPHILS ABSOLUTE 0.02 0.00 - 0.20 K/uL [facility] MONOCYTES 12 3 - 13 % [facility] MONOCYTE ABSOLUTE 0.48 0.10 - 1.30 K/uL [facility] NEUTROPHILS 65 45 - 70 % [facility] NEUTROPHIL ABSOLUTE 2.70 1.90 - 7.00 K/uL [facility] EOSINOPHILS 1 0 - 7 % [facility] EOSINOPHIL ABSOLUTE 0.06 0.00 - 0.70 K/uL [facility] MPV 9.4 9.3 - 12.4 fL [facility] PLATELETS 68(L) 140 - 350 K/uL [facility] Comment:Platelets verified b y smear review. 09/28/2008 8:43 AM CDT 09/28/2008 8:54 AM CDT us Severo Esparza MD HEMATOLOGY ORDERABLES Edited INTERFACE SYSTEM Refer to clinic/hospital department [facility] CLIA# [id number] [address] [place] [address] documented in this encounter Visit Diagnoses Diagnosis Malignant neoplasm of breast (female), unspecified site documented in this encounter Care Teams Human Resources Benefits Administrator Relationship Specialty Start Date End Date Noemí [place] [address] [facility] [place] [address] PCP - General 02/21/07 04/10/09 documented as of this encounter
--- OUTSIDE RECORDS SUMMARY | 2025-03-15 13:57 | XMS_ITS | Encounter Summary ---
Author Organization [facility] Address 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
--- OUTSIDE RECORDS SUMMARY | 2025-03-15 13:57 | XMS_ITS | Encounter Summary ---
Author Organization [facility] Address [address] [place] [address] Care Team Providers Care Medical Coding Instructor Name Role Phone Noemí Virk MD Primary Care Provider [phone] Encounter Details Date Type Department Care Team (Late st Contact Info) Description 01/05/2002 Inpatient Historical HIS [facility] Harriet White MD [address] [place] [id number] Keo Mcdaniel MD [address] [place] [address] MALIG NEOPLASM BREAST UP-OUTER (CMS/HCC) (Primary Dx) Social History Tobacco Use Types Packs/Day Years Used Date Smoking Tobacco: Never Assessed Comments Unknown Sex and Gender Information Value Date Recorded Sex Assigned at Not on file 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
--- OUTSIDE RECORDS SUMMARY | 2025-03-15 13:57 | XMS_ITS | Encounter Summary ---
Author Organization [facility] Address 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
--- OUTSIDE RECORDS SUMMARY | 2025-03-15 13:57 | XMS_ITS | Encounter Summary ---
Author Organization [facility] Address 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
--- OUTSIDE RECORDS SUMMARY | 2025-03-15 13:57 | XMS_ITS | Encounter Summary ---
Author Organization [facility] Address [address] [facility] [place] [address] Care Team Providers Care Fudger Name Role Phone Sukhjinder Miller MD Primary Care Provider [phone] Encounter Details Date Type Department Care Team (Late st Contact Info) Description 08/18/2024 Lab Requisition [facility] - DermPath Lab [address] [facility], [place] [phone] Yissel Silverio DO [address] [facility] [address] [place] [address] Social History Tobacco Use Types Packs/Day Years Used Date Smoking Tobacco: Never Smokeless Tobacco: Never Alcohol Use Standard Drinks/Week Comments Yes 0 (1 standard drink = 0.6 oz pur e alcohol) Comments Unknown Sex and Gender Information Value Date Recorded Sex Assigned at Not on file 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 Gender Identity Not on file Sexual Orientation Not on file documented as of this encounter Plan of Treatment Not on file documented as of this encounter Procedures Procedure Name Priority Date/Time Associated Diagnosis Comments DERMATOPATHOLOGY Routine 08/18/2024 10:0 7 AM CDT documented in this encounter Results * DERMATOPATHOLOGY (08/18/2024 10:07 AM CDT) Case Report Dermatopathology Report Case: [id number] Authorizing Provider: Yissel Silverio DO Collected: 08/18/2024 10:07 AM Ordering Location: [facility] - Received: 08/20/2024 06:35 AM DermPath Lab Pathologist: Duong Traore MD Specimen: Skin, left cheek 1:43 PM CDT DERMATOPATHOLOGY LABORATORY Final Diagnosis Specimen A. 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 The specimen consists of a shave biopsy measuring 5x4x4 mm. Jar 0. 1:43 PM CDT DERMATOPATHOLOGY LABORATORY Microscopic Description Specimen A. SKIN, left cheek: The epidermis is acanthotic and shows full thickness disorderly maturation of keratinocytes, mitoses at different levels, and dyskeratotic cells. There is overlying parakeratosis and hyperkeratosis. There is a column of marked compact hyperkeratosis. 1:43 PM CDT DERMATOPATHOLOGY LABORATORY Disclaimer An external and internal positive and negative controls are appropriate for the histochemical, immunohistochemical and immunofluorescence stain(s) in this case (if any), except where stated explicitly. The performance characteristics of the stain(s) cited in this report were developed and its performance characteristic determined by the Dermatopathology Laboratory at [facility], directed by Dr. Dorothea Traore. These tests need not be, and therefore are not, approved by the [place] Food and Drug Administration. The tests are used for clinical purposes. Billing Codes Specimen Charges Stain Charges 40901 1 1:43 PM CDT DERMATOPATHOLOGY LABORATORY Embedded Images 1:43 PM CDT DERMATOPATHOLOGY LABORATORY Pathology/Cytolo gy TISSUE SPECIMEN FROM SKIN / Unknown 08/18/2024 10:07 AM CDT 08/20/2024 6:35 AM CDT us Yissel Silverio DO LAB - PATHOLOGY/CYTOLOGY ORDERABLES Final Result DERMATOPATHOLOGY LABORATORY [facility] - Department of Dermatology [address], [address] [phone] documented in this encounter Visit Diagnoses Not on filedocumented in this encounter Care Teams Fudger Relationship Specialty Start Date End Date Sukhjinder Miller MD [address] [place] [phone] PCP - General 08/09/15 documented as of this encounter
--- OUTSIDE RECORDS SUMMARY | 2025-03-15 13:57 | XMS_ITS | Encounter Summary ---
Author Organization [facility] Address [address] [place] [address] Care Team Providers Care Felt Carbonizer Name Role Phone Noemí Virk MD Primary Care Provider [phone] Encounter Details Date Type Department Care Team (Latest Contact Info) Description 01/16/2002 Outpatient Historical HIS PATIENT IN A BED Gile, MD Keo [address] 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
--- OUTSIDE RECORDS SUMMARY | 2025-03-15 13:57 | XMS_ITS | Encounter Summary ---
Author Organization [facility] Address 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 Gender Identity Not on file Sexual Orientation Not on file documented as of this encounter Plan of Treatment Not on file documented as of this encounter Procedures Procedure Name Priority Date/Time Associated Diagnosis Comments CBC WITH DIFFERENTIAL Stat 09/14/2008 9:57 AM CDT COMPREHENSIVE METABOLIC PANEL Stat 09/14/2008 9:57 AM CDT CBC WITH DIFFERENTIAL Stat 08/30/2008 10:03 AM CDT COMPREHENSIVE METABOLIC PANEL Stat 08/30/2008 10:03 AM CDT documented in this encounter Results * (ABNORMAL) COMPREHENSIVE METABOLIC PANEL (09/14/2008 9:57 AM CDT) CO2 22 22 - 30 mmol/L [facility] BILIRUBIN TOTAL 0.3 0.2 - 1.0 mg/dL [facility] POTASSIUM 3.5 3.5 - 4.9 mmol/L [facility] TOTAL PROTEIN 7.1 6.3 - 8.6 g/dL [facility] GLUCOSE 128(H) 65 - 99 mg/dL [facility] AST 40(H) 12 - 32 U/L [facility] BUN 18 6 - 20 mg/dL [facility] CALCIUM 9.7 8.6 - 10.2 mg/dL [facility] ALBUMIN 4.1 3.4 - 4.8 g/dL [facility] CHLORIDE 109(H) 96 - 108 mmol/L [facility] CREATININE 0.83 0.51 - 0.95 mg/dL [facility] ALT 79(H) 0 - 31 U/L [facility] SODIUM 145 135 - 145 mmol/L [facility] ALKALINE PHOSPHATASE 254(H) 35 - 104 U/L [facility] GFR, >60 >=60 mL/min/1. 7 sq meter [facility] GFR >60 >=60 mL/min/1. 7 sq meter [facility] Comment: Modification of Diet in Renal Disease (MDRD) study formula. Estimated GFR rate interpretative information for both Americans and non- Americans is available on the [facility] at: [email or web address] Select: Lab Policies and Procedures Select: Reference Ranges - GFR 09/14/2008 9:57 AM CDT 09/14/2008 10:13 AM CDT us Severo Esparza MD CHEMISTRY ORDERABLES Edited INTERFACE SYSTEM Refer to clinic/hospital department [facility] CLIA# [id number] [address] [place] [address] * (ABNORMAL) CBC WITH DIFFERENTIAL (09/14/2008 9:57 AM CDT) HEMATOCRIT 34.3(L) 35.5 - 44.0 % [facility] RDW-STDEV 53.1(H) 37.1 - 48.7 fL [facility] RBC 3.86(L) 3.90 - 4.90 M/uL [facility] MCHC 33.8 31.5 - 35.5 % [facility] MCV 88.9 82.0 - 99.0 fL [facility] HEMOGLOBIN 11.6(L) 11.8 - 14.8 g/dL [facility] RDW 16.7(H) 11.5 - 14.5 % [facility] WBC 4.7 4.0 - 9.8 K/uL [facility] MCH 30.1 27.2 - 32.6 pg [facility] MONOCYTE ABSOLUTE 0.51 0.10 - 1.30 K/uL [facility] NEUTROPHILS 63 45 - 70 % [facility] NEUTROPHIL ABSOLUTE 2.97 1.90 - 7.00 K/uL [facility] EOSINOPHILS 2 0 - 7 % [facility] EOSINOPHIL ABSOLUTE 0.10 0.00 - 0.70 K/uL [facility] LYMPHOCYTES 24 16 - 45 % [facility] LYMPHOCYTE ABSOLUTE 1.11 0.70 - 4.50 K/uL [facility] BASOPHILS 0 0 - 2 % [facility] BASOPHILS ABSOLUTE 0.02 0.00 - 0.20 K/uL [facility] MONOCYTES 11 3 - 13 % [facility] PLATELETS 84(L) 140 - 350 K/uL [facility] Comment:Platelets verified b y smear review. MPV 9.1(L) 9.3 - 12.4 fL [facility] 09/14/2008 9:57 AM CDT 09/14/2008 10:13 AM CDT Severo Esparza MD HEMATOLOGY ORDERABLES Edited INTERFACE SYSTEM Refer to clinic/hospital department [facility] CLIA# [id number] [address] [place] [address] * (ABNORMAL) COMPREHENSIVE METABOLIC PANEL (08/30/2008 10:03 AM CDT) CALCIUM 9.3 8.6 - 10.2 mg/dL [facility] ALBUMIN 4.0 3.4 - 4.8 g/dL [facility] CHLORIDE 106 96 - 108 mmol/L [facility] CREATININE 0.83 0.51 - 0.95 mg/dL [facility] ALT 193(H) 0 - 31 U/L [facility] SODIUM 141 135 - 145 mmol/L [facility] ALKALINE PHOSPHATASE 220(H) 35 - 104 U/L [facility] CO2 23 22 - 30 mmol/L [facility] BILIRUBIN TOTAL 0.2 0.2 - 1.0 mg/dL [facility] POTASSIUM 3.3(L) 3.5 - 4.9 mmol/L [facility] TOTAL PROTEIN 6.9 6.3 - 8.6 g/dL [facility] GLUCOSE 116(H) 65 - 99 mg/dL [facility] AST 77(H) 12 - 32 U/L [facility] BUN 16 6 - 20 mg/dL [facility] GFR, >60 >=60 mL/min/1. 7 sq meter [facility] GFR >60 >=60 mL/min/1. 7 sq meter [facility] Comment: Modification of Diet in Renal Disease (MDRD) study formula. Estimated GFR rate interpretative information for both Americans and non- Americans is available on the [facility] at: [email or web address] Select: Lab Policies and Procedures Select: Reference Ranges - GFR Blood specimen (specimen) 08/30/2008 10:03 AM CDT 08/30/2008 10:37 AM CDT us Severo Esparza MD CHEMISTRY ORDERABLES Edited INTERFACE SYSTEM Refer to clinic/hospital department [facility] CLIA# [id number] [address] [place] [address] * (ABNORMAL) CBC WITH DIFFERENTIAL (08/30/2008 10:03 AM CDT) WBC 5.2 4.0 - 9.8 K/uL [facility] MCH 29.3 27.2 - 32.6 pg [facility] MPV 9.2(L) 9.3 - 12.4 fL [facility] HEMATOCRIT 32.8(L) 35.5 - 44.0 % [facility] RDW-STDEV 46.4 37.1 - 48.7 fL [facility] RBC 3.72(L) 3.90 - 4.90 M/uL [facility] MCHC 33.2 31.5 - 35.5 % [facility] MCV 88.2 82.0 - 99.0 fL [facility] PLATELETS 117(L) 140 - 350 K/uL [facility] HEMOGLOBIN 10.9(L) 11.8 - 14.8 g/dL [facility] RDW 14.9(H) 11.5 - 14.5 % [facility] BASOPHILS 0 0 - 2 % [facility] BASOPHILS ABSOLUTE 0.02 0.00 - 0.20 K/uL [facility] MONOCYTES 9 3 - 13 % [facility] MONOCYTE ABSOLUTE 0.47 0.10 - 1.30 K/uL [facility] NEUTROPHILS 67 45 - 70 % [facility] NEUTROPHIL ABSOLUTE 3.53 1.90 - 7.00 K/uL [facility] EOSINOPHILS 2 0 - 7 % [facility] EOSINOPHIL ABSOLUTE 0.12 0.00 - 0.70 K/uL [facility] LYMPHOCYTES 21 16 - 45 % [facility] LYMPHOCYTE ABSOLUTE 1.10 0.70 - 4.50 K/uL [facility] Blood specimen (specimen) 08/30/2008 10:03 AM CDT 08/30/2008 10:37 AM CDT us Severo Esparza MD HEMATOLOGY ORDERABLES Edited INTERFACE SYSTEM Refer to clinic/hospital department [facility] CLIA# [id number] [address] [place] [address] documented in this encounter Visit Diagnoses Diagnosis Malignant neoplasm of breast (female), unspecified site documented in this encounter Care Teams Relay Engineer Relationship Specialty Start Date End Date Noemí [place] [address] [place] [phone] PCP - General 02/21/07 04/10/09 documented as of this encounter
--- OUTSIDE RECORDS SUMMARY | 2025-03-15 13:57 | XMS_ITS | Encounter Summary ---
Author Organization [facility] Address [address] [place] [address] Care Team Providers Care Drafter Plumbing Name Role Phone Noemí Virk MD Primary Care Provider [phone] Encounter Details Date Type Department Care Team (Latest Contact Info) Description 01/10/2007 Outpatient Historical HIS [facility] Esparza, Severo Watters MD NO ADDRESS ON FILE Malignant Neoplasm of Breast (Female), Unspecified Site (CMS/HCC) (Primary Dx) Social History Tobacco Use Types Packs/Day Years Used Date Smoking Tobacco: Never Assessed Comments Unknown Sex and Gender Information Value Date Recorded Sex Assigned at Not on file 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
--- OUTSIDE RECORDS SUMMARY | 2025-03-15 13:57 | XMS_ITS | Encounter Summary ---
Author Organization [facility] Address [address] [place] [address] Care Team Providers Care Bankruptcy Law Specialist Name Role Phone Noemí Virk MD Primary Care Provider [phone] Encounter Details Date Type Department Care Team (Latest Contact Info) Description 01/10/2007 Outpatient Historical HIS 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
--- OUTSIDE RECORDS SUMMARY | 2025-03-15 13:57 | XMS_ITS | Encounter Summary ---
Author Organization [facility] Address 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
--- OUTSIDE RECORDS SUMMARY | 2025-03-15 13:57 | XMS_ITS | Encounter Summary ---
Author Organization [facility] Address [address] [place] [address] Care Team Providers Care Field Care Coordinator Name Role Phone Noemí Virk MD Primary Care Provider [phone] Encounter Details Date Type Department Care Team (Latest Contact Info) Description 01/15/2008 Outpatient Historical HIS [facility] Estrella Reyes MD NO ADDRESS ON FILE Malignant Neoplasm of Breast (Female), Unspecified Site (CMS/HCC) Social History Tobacco Use Types Packs/Day Years Used Date Smoking Tobacco: Never Assessed Comments Unknown Sex and Gender Information Value Date Recorded Sex Assigned at Not on file 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 Gender Identity Not on file Sexual Orientation Not on file documented as of this encounter Plan of Treatment Not on file documented as of this encounter Procedures Procedure Name Priority Date/Time Associated Diagnosis Comments MAMMO DIAGNOSTIC UNI RIGHT W OR WO CAD Routine 01/15/2008 12:58 PM CDT documented in this encounter Results * MAMMO DIGITAL DIAG UNI RIGHT (01/15/2008 12:58 PM CDT) Anatomical Region Laterality Modality Breast Right Other 01/15/2008 12:5 8 PM CDT Narrative 01/15/2008 4:36 PM CDT [facility] [address] [place], [place] [address] Admit Date: 01/15/2008 JUAN M GARG Sex: F Admit Prov: ESTRELLA MUSTAFA Date: 1955 Primary Care Prov: NOEMÍ VIRK CMRN: [id number] Room: MAYDA N: [id number] IMAGING SERVICES Ordering Prov: ESTRELLA MUSTAFA Accession Number: [id number] Interpretation DIAGNOSTIC RIGHT UNILATERAL MAMMOGRAM WITH COMPUTER AIDED DIAGNOSIS 01/15/2008 History: Status post a left mastectomy for breast cancer. Findings: A three-view diagnostic examination of the right breast was performed and is compared to prior exams including 01/10/2007 and 12/11/2002. Scattered fibroglandular densities are stable. No new mass, suspicious calcifications, or areas of distortion are identified. The films were reviewed using the CAD system. Impression: Status post a left mastectomy. Stable appearance of the right breast. Recommend routine followup. Overall assessment: BIRADS category 1 - Negative. Assessment BIRADS: 1-Negative Recommendation: Normal interval follow-up Dictated by: VALENTINA MCNULTY Electronically signed by: VALENTINA MCNULTY 01/15/2008 16:36 Transcribed: 01/15/2008 13:55 SDJ Procedure Note Valentina Mcnulty - 01/15/2008 [facility] [address] [place], [place] [address] Admit Date: 01/15/2008 JUAN M GARG Sex: F Admit Prov: ESTRELLA MUSTAFA Date: 1955 Primary Care Prov: NOEMÍ VIRK CMRN: [id number] Room: Doris N: [id number] IMAGING SERVICES Ordering Prov: ESTRELLA MUSTAFA Interpretation DIAGNOSTIC RIGHT UNILATERAL MAMMOGRAM WITH COMPUTER AIDED DIAGNOSIS 01/15/2008 History: Status post a left mastectomy for breast cancer. Findings: A three-view diagnostic examination of the right breastwas performed and is compared to prior exams including 01/10/2007 and12/11/2002. Scattered fibroglandular densities are stable. No new mass,suspicious calcifications, or areas of distortion are identified. The films were reviewed using the CAD system. Impression: Status post a left mastectomy. Stable appearance of the right breast. Recommend routine followup. Overall assessment: BIRADS category 1 - Negative. Assessment BIRADS: 1-Negative Recommendation: Normal interval follow-up Dictated by: VALENTINA MCNULTY Electronically signed by: VALENTINA MCNULTY 01/15/2008 16:36 Transcribed: 01/15/2008 13:55 SDJ us Estrella Mustafa MD MAMMO ORDERABLES Final Resul t documented in this encounter Visit Diagnoses Diagnosis Malignant neoplasm of breast (female), unspecified site documented in this encounter Care Teams Field Care Coordinator Relationship Specialty Start Date End Date Noemí [place] [address] [place] [address] PCP - General 02/21/07 04/10/09 documented as of this encounter
--- OUTSIDE RECORDS SUMMARY | 2025-03-15 13:57 | XMS_ITS | Clinical Summary ---
Author Organization [facility] [employer] Address [address] [place] [address] Care Team Providers Care [employer] Portal Consultant Name Role Phone Sukhjinder Miller MD Primary Care Provider [phone] Source Comments [facility],non-owned Affiliates and Associated Physician Practices is amultiple site organization consisting of ambulatory clinics and hospital sitesin [place], [place], [place] and [place]. This disclosure is being madepursuant to the Care Everywhere program and may not contain all information available regarding this patient. 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 Gender Identity Not on file Sexual Orientation Not on file Last Filed Vital Signs Vital Sign Reading Time Taken Comments Blood Pressure 138/87 11/22/2015 10:56 AM CDT Pulse 72 11/22/2015 10:56 AM CDT Temperature - - Respiratory Rate - - Oxygen Saturation 95% 11/22/2015 10:56 AM CDT Inhaled Oxygen Concentration - - Weight 80.3 kg (177 lb) 11/22/2015 8:08 AM CDT Height 157.5 cm (5' 2) 11/22/2015 8:08 AM CDT Body Mass Index 32.37 11/22/2015 8:08 AM CDT Plan of Treatment Health Maintenance Due Date Last Done Comments BONE DENSITY TESTING 1955 COLOGUARD (AGES 45-75) - COL ON CA SCREENING 1955 COLON MONITORING 1955 COLONOSCOPY - COLON CA SCREENING 1954 CT COLONOGRAPHY - COLON CA SCREENING 1955 Colorectal Cancer Screening 1955 FIT - COLON CA SCREENING 1955 FLEX SIG - COLON CA SCREENING 1955 LIPID TESTING 1955 MAMMOGRAM 1955 MEDICARE AWV 12 MONTHS 1955 HEPATITIS C SCREENING 09/17/1972 DTAP/TDAP/TD VACCINES (1 - Tdap) 1973 PNEUMOCOCCAL VACCINE 50+ (1 of 1 - PCV) 2004 ZOSTER VACCINE (1 of 2) 2004 DEPRESSION SCREENING 04/22/2024 COVID-19 VACCINE (1 - 2024-2 6 season) 2024 INFLUENZA VACCINE (#1) 2024 Respiratory Syncytial Virus (RSV) Vaccine Pt: or over 60 yrs (1 - 1-dose 75+ series) 2029 HEPATITIS B VACCINE Aged Out No longe r eligible based on patient's age to complete this topic HIB VACCINE Aged Out No longer eligi ble based on patient's age to complete this topic HPV VACCINE Aged Out No longer eligi ble based on patient's age to complete this topic MENINGOCOCCAL (Group B) VACC INE SHARED DECISION-MAKING Aged Out No longer eligibl e based on patient's age to complete this topic MENINGOCOCCAL GROUPS A/C/Y/W VACCINE Aged Out No longer eligible b ased on patient's age to complete this topic Insurance [employer] SELF PAY NO INSURANCE Member Subscriber Plan / Payer (Ef fective for All Dates) Name:Juan M Garg Member ID:Not on file Relation to Subscriber:Not on file Name:JUAN M GARG Subscriber ID:Not on file (Home) Address: [address] [place] [id number] Payer ID:Not on file Group ID:Not on file Type:Self Pay Address: [place], [place] Care Teams [employer] Consultant Relationship Specialty Start Date End Date Sukhjinder Miller MD [address] [place] [address] [address] [place] [address] PCP - General 08/09/15
--- OUTSIDE RECORDS SUMMARY | 2025-03-15 13:57 | XMS_ITS | Encounter Summary ---
Author Organization [facility] Address 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 [place] [address] Admit Date: 08/02/2008 JUAN M GARG Sex: F Admit Prov: STEFFANY REESE Date: 1955 Primary Care Prov: CMRN: [id number] Room: SURG-A SSN: [id number] IMAGING SERVICES Ordering Prov: MARY ANN STEFFANY Cantu Accession Number: [id number] Interpretation Fluoroscopic guidance was used by the surgeon to assist with performance of this intra-operative procedure. Please refer to surgeon s operative report for specific details. Dictated by: RADIOLOGY, DEPARTMENT O Electronically signed by: RADIOLOGY, DEPARTMENT 08/07/2008 11:43 Transcribed: 08/07/2008 10:27 AMK Procedure Note Radiology, Radiologist - 08/07/2008 [facility] [address] [place], [place] [address] Admit Date: 08/02/2008 JUAN M GARG Sex: F Admit Prov: STEFFANY REESE Date: 1955 Primary Care Prov: CMRN: [id number] Room: SURG-A N: [id number] IMAGING SERVICES Ordering Prov: STEFFANY REESE Interpretation Fluoroscopic guidance was used by the surgeon to assist withperformance of this intra-operative procedure. Please refer to surgeon s operativereport for specific details. Dictated by: RADIOLOGY, DEPARTMENT O Electronically signed by: RADIOLOGY, DEPARTMENT 08/07/2008 11:43 Transcribed: 08/07/2008 10:27 AMK Steffany Reese MD IR ORDERABLES Final Result documented in this encounter Visit Diagnoses Not on filedocumented in this encounter Care Teams Supplemental Nurse Relationship Specialty Start Date End Date [place]í [place] [address] [facility] [place] [address] PCP - General 02/21/07 04/10/09 documented as of this encounter
--- OUTSIDE RECORDS SUMMARY | 2025-03-15 13:57 | XMS_ITS | Encounter Summary ---
Author Organization [facility] Address [address] [place] [address] Care Team Providers Care Set Staff Fitter Name Role Phone Noemí Virk MD Primary Care Provider [phone] Encounter Details Date Type Department Care Team (Latest Contact Info) Description 12/24/2001 Outpatient Historical [facility] Mcdaniel, MD Keo [address] [place] [phone] LUMP OR MASS IN BREAST (Primary Dx) Social History Tobacco Use Types Packs/Day Years Used Date Smoking Tobacco: Never Assessed Comments Unknown Sex and Gender Information Value Date Recorded Sex Assigned at Not on file 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
--- OUTSIDE RECORDS SUMMARY | 2025-03-15 13:57 | XMS_ITS | Encounter Summary ---
Author Organization [facility] Address 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 Gender Identity Not on file Sexual Orientation Not on file documented as of this encounter Plan of Treatment Not on file documented as of this encounter Procedures Procedure Name Priority Date/Time Associated Diagnosis Comments CBC WITH DIFFERENTIAL Stat 08/16/2008 9:59 AM CDT COMPREHENSIVE METABOLIC PANEL Stat 08/16/2008 9:[address] CHEST ABDOMEN PELVIS WO CONT Routine 07/23/2008 1:58 PM CDT POC CREATININE Routine 07/23/2008 1:30 PM CDT documented in this encounter Results * (ABNORMAL) COMPREHENSIVE METABOLIC PANEL (08/16/2008 9:59 AM CDT) GLUCOSE 122(H) 65 - 99 mg/dL [facility] AST 27 12 - 32 U/L [facility] BUN 20 6 - 20 mg/dL [facility] CALCIUM 9.3 8.6 - 10.2 mg/dL [facility] ALBUMIN 4.1 3.4 - 4.8 g/dL [facility] CHLORIDE 107 96 - 108 mmol/L [facility] CREATININE 0.85 0.51 - 0.95 mg/dL [facility] ALT 56(H) 0 - 31 U/L [facility] SODIUM 141 135 - 145 mmol/L [facility] ALKALINE PHOSPHATASE 168(H) 35 - 104 U/L [facility] CO2 24 22 - 30 mmol/L [facility] BILIRUBIN TOTAL 0.3 0.2 - 1.0 mg/dL [facility] POTASSIUM 3.5 3.5 - 4.9 mmol/L [facility] TOTAL PROTEIN 7.3 6.3 - 8.6 g/dL [facility] GFR, >60 >=60 mL/min/1. 7 sq meter [facility] GFR >60 >=60 mL/min/1. 7 sq meter [facility] Comment: Modification of Diet in Renal Disease (MDRD) study formula. Estimated GFR rate interpretative information for both Americans and non- Americans is available on the [facility]anet at: [email or web address] Select: Lab Policies and Procedures Select: Reference Ranges - GFR Blood specimen (specimen) 08/16/2008 9:59 AM CDT 08/16/2008 10:36 AM CDT us Estrella Mustafa MD CHEMISTRY ORDERABLES Edited INTERFACE SYSTEM Refer to clinic/hospital department [facility] CLIA# [id number] [address] [place] [address] * (ABNORMAL) CBC WITH DIFFERENTIAL (08/16/2008 9:59 AM CDT) HEMOGLOBIN 10.9(L) 11.8 - 14.8 g/dL [facility] RDW 13.0 11.5 - 14.5 % [facility] WBC 5.8 4.0 - 9.8 K/uL [facility] MCH 29.1 27.2 - 32.6 pg [facility] MPV 8.8(L) 9.3 - 12.4 fL [facility] HEMATOCRIT 32.5(L) 35.5 - 44.0 % [facility] RDW-STDEV 41.6 37.1 - 48.7 fL [facility] RBC 3.75(L) 3.90 - 4.90 M/uL [facility] MCHC 33.5 31.5 - 35.5 % [facility] MCV 86.7 82.0 - 99.0 fL [facility] PLATELETS 162 140 - 350 K/uL [facility] LYMPHOCYTES 18 16 - 45 % [facility] LYMPHOCYTE ABSOLUTE 1.05 0.70 - 4.50 K/uL [facility] BASOPHILS 1 0 - 2 % [facility] BASOPHILS ABSOLUTE 0.03 0.00 - 0.20 K/uL [facility] MONOCYTES 6 3 - 13 % [facility] MONOCYTE ABSOLUTE 0.33 0.10 - 1.30 K/uL [facility] NEUTROPHILS 73(H) 45 - 70 % [facility] NEUTROPHIL ABSOLUTE 4.25 1.90 - 7.00 K/uL [facility] EOSINOPHILS 3 0 - 7 % [facility] EOSINOPHIL ABSOLUTE 0.15 0.00 - 0.70 K/uL [facility] Blood specimen (specimen) 08/16/2008 9:59 AM CDT 08/16/2008 10:36 AM CDT us Estrella Mustafa MD HEMATOLOGY ORDERABLES Edited INTERFACE SYSTEM Refer to clinic/hospital department [facility] CLIA# [id number] [address] [place] [address] * CT CHEST ABDOMEN PELVIS WO CONT (07/23/2008 1:58 PM CDT) Anatomical Region Laterality Modality Chest Other 07/23/2008 1:58 PM CDT Narrative 07/25/2008 3:55 PM CDT [facility] [address] [place], [place] [address] Admit Date: 07/23/2008 ROSARIO GARG Sex: F Admit Prov: ESTRELLA MUSTAFA Date: 1955 Primary Care Prov: CMRN: [id number] Room: [facility] SSN: [id number] IMAGING SERVICES Ordering Prov: N/A Accession Number: [id number] [address] OF THE CHEST WITHOUT CONTRAST 07/23/2008 Clinical History: Breast carcinoma. Technique: Spiral volumetric acquisition of the chest was performed without intravenous contrast secondary to decreased GFR of 43. Comparison: 11/01/2003. Findings: No mediastinal, hilar, or axillary adenopathy is seen. No pericardial or pleural effusions are evident. The patient is status post left breast prosthesis. Calcified lymph nodes are noted in the subcarinal region. Lung parenchymal windows demonstrate mild dependent atelectasis. No focal infiltrate or pulmonary nodules are seen. The airway is patent. Impression: Mild dependent atelectasis. No evidence of metastatic disease. CT ABDOMEN AND PELVIS WITHOUT CONTRAST 07/23/2008 Clinical History: Breast carcinoma. Technique: Spiral volumetric acquisition of the abdomen and pelvis was performed without contrast secondary to decreased GFR of 43. Comparison: 11/01/2003. Findings: Images demonstrate a calcification within the anterior spleen consistent with old granulomatous disease. A 1.1 cm low attenuation lesion is noted within the posterior lateral segment of the left hepatic lobe. This is unchanged when compared to 11/01/2003. Given its stability it likely represents a small cyst or biliary hamartoma. The adrenal glands, pancreas, and gallbladder are unremarkable. No hydronephrosis of either kidney is seen. No renal lesions are noted on noncontrast imaging. The lack of intravenous contrast limits evaluation of the solid intra-abdominal organs. No adenopathy or free fluid is seen. No bowel dilatation is evident. Stringy infiltration of the left lateral paracolic and retroperitoneal fat is noted. This displaces the descending colon medially and somewhat anteriorly. This measures 16 x 10.6 x 6.4 cm in craniocaudal, oblique anterior-posterior, and oblique mediolateral dimensions respectively. More inferiorly is a 1.7 x 0.9 cm area of soft tissue attenuation. 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 Images of the pelvis demonstrate no adenopathy. A mild amount of free fluid is noted within the posterior cul-de-sac. No bowel dilatation is seen. The uterus is within normal limits in size. No adnexal masses are seen. The urinary bladder is largely decompressed. Impression: Simple hepatic cysts. Large area of streaky infiltration of the fat with a small soft tissue component involving the left paracolic gutter region and retroperitoneum. This displaces the descending colon medially. 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 . Dictated by: ALLISON YEE 07/23/2008 15:17 Electronically signed by: ALLISON YEE07/25/2008 15:53 Transcribed: 07/23/2008 18:00 AMK Procedure Note Allison Steward MD - 07/25/2008 [facility] [address] [place], [place] [address] Admit Date: 07/23/2008 ROSARIO GARG Iris Sex: F Admit Prov: ESTRELLA MUSTAFA Date: 1955 Primary Care Prov: CMRN: [id number] Room: [facility] SSN: [id number] IMAGING SERVICES Ordering Prov: N/A Interpretation CT OF THE CHEST WITHOUT CONTRAST 07/23/2008 Clinical History: Breast carcinoma. Technique: Spiral volumetric acquisition of the chest was performedwithout intravenous contrast secondary to decreased GFR of 43. Comparison: 11/01/2003. Findings: No mediastinal, hilar, or axillary adenopathy is seen. No pericardialor pleural effusions are evident. The patient is status post leftbreast prosthesis. Calcified lymph nodes are noted in the subcarinalregion. Lung parenchymal windows demonstrate mild dependent atelectasis. Nofocal infiltrate or pulmonary nodules are seen. The airway is patent. Impression: Mild dependent atelectasis. No evidence of metastatic disease. CT ABDOMEN AND PELVIS WITHOUT CONTRAST 07/23/2008 Clinical History: Breast carcinoma. Technique: Spiral volumetric acquisition of the abdomen and pelviswas performed without contrast secondary to decreased GFR of 43. Comparison: 11/01/2003. Findings: Images demonstrate a calcification within the anterior spleenconsistent with old granulomatous disease. A 1.1 cm low attenuation lesion isnoted within the posterior lateral segment of the left hepatic lobe. Thisis unchanged when compared to 11/01/2003. Given its stability it likely represents a small cyst or biliary hamartoma. The adrenal glands,pancreas, and gallbladder are unremarkable. No hydronephrosis of either kidneyis seen. No renal lesions are noted on noncontrast imaging. The lackof intravenous contrast limits evaluation of the solid intra-abdominalorgans. No adenopathy or free fluid is seen. No bowel dilatation isevident. Stringy infiltration of the left lateral paracolic andretroperitoneal fat is noted. This displaces the descending colon medially and somewhat anteriorly. This measures 16 x 10.6 x 6.4 cm in craniocaudal,oblique anterior-posterior, and oblique mediolateral dimensions respectively.More inferiorly is a 1.7 x 0.9 cm area of soft tissue attenuation. Thefindings are concerning for retroperitoneal sarcoma given its appearance and displacement of the descending colon. Images of the pelvis demonstrate no adenopathy. A mild amount of freefluid is noted within the posterior cul-de-sac. No bowel dilatation isseen. The uterus is within normal limits in size. No adnexal masses are seen.The urinary bladder is largely decompressed. Impression: Simple hepatic cysts. Large area of streaky infiltration of the fat with a small softtissue component involving the left paracolic gutter region andretroperitoneum. This displaces the descending colon medially. This is concerningfor retroperitoneal sarcoma. . Dictated by: ALLISON EYE 07/23/2008 15:17 Electronically signed by: ALLISON YEE07/25/2008 15:53 Transcribed: 07/23/2008 18:00 AMK us Estrella Mustafa MD CT ORDERABLES Final Result * (ABNORMAL) POC CREATININE (07/23/2008 1:30 PM CDT) CREATININE POC 1.3 0.6 - 1.3 mg/dL [facility] Comment: The calculation for the estimated GFR on the i-STAT POC instrument has been changed to correspond to the IDMS-traceable MDRD Study, upon the recommendation of the puppy walker of the i-STAT instrument. The change was effective in our laboratory 03/29/2008. The impact of this change to the estimated GFR is minimal. This calculation is used by the main laboratory methodology also. GFR, 52(L) >=60 mL/min/1.7 sq meter [facility] GFR 43(L) >=60 mL/min/1.7 sq meter [facility] Capillary blood specimen (specimen) 07/23/2008 1:30 PM CDT 07/23/2008 1:30 PM CDT us Estrella Mustafa MD POINT OF CARE TESTING Edited INTERFACE SYSTEM Refer to clinic/hospital department [facility] CLIA# [id number] [address] [place] [address] documented in this encounter Visit Diagnoses Diagnosis Malignant neoplasm of breast (female), unspecified site documented in this encounter Care Teams Drop Wirer Relationship Specialty Start Date End Date Noemí [place] [address] [facility] [place] [phone] PCP - General 02/21/07 04/10/09 documented as of this encounter
--- OUTSIDE RECORDS SUMMARY | 2025-03-15 13:58 | XMS_ITS | Encounter Summary ---
Author Organization [facility] Address 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
--- OUTSIDE RECORDS SUMMARY | 2025-03-15 13:58 | XMS_ITS | Encounter Summary ---
Author Organization [facility] Address 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
--- OUTSIDE RECORDS SUMMARY | 2025-03-15 13:58 | XMS_ITS | Encounter Summary ---
Author Organization [facility] Address 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 Gender Identity Not on file Sexual Orientation Not on file documented as of this encounter Plan of Treatment Not on file documented as of this encounter Procedures Procedure Name Priority Date/Time Associated Diagnosis Comments CBC WITH DIFFERENTIAL Stat 11/23/2008 9:25 AM CDT COMPREHENSIVE METABOLIC PANEL Stat 11/23/2008 9:25 AM CDT CBC WITH DIFFERENTIAL Stat 11/09/2008 9:22 AM CDT COMPREHENSIVE METABOLIC PANEL Stat 11/09/2008 9:22 AM CDT documented in this encounter Results * (ABNORMAL) COMPREHENSIVE METABOLIC PANEL (11/23/2008 9:25 AM CDT) CALCIUM 9.6 8.6 - 10.2 mg/dL [facility] ALBUMIN 4.1 3.4 - 4.8 g/dL [facility] CO2 23 22 - 30 mmol/L [facility] CREATININE 0.88 0.51 - 0.95 mg/dL [facility] ALT 44(H) 0 - 31 U/L [facility] SODIUM 141 135 - 145 mmol/L [facility] ALKALINE PHOSPHATASE 263(H) 35 - 104 U/L [facility] BILIRUBIN TOTAL 0.3 0.2 - 1.0 mg/dL [facility] POTASSIUM 3.5 3.5 - 4.9 mmol/L [facility] TOTAL PROTEIN 7.3 6.3 - 8.6 g/dL [facility] CHLORIDE 108 96 - 108 mmol/L [facility] GLUCOSE 134(H) 65 - 99 mg/dL [facility] AST 41(H) 12 - 32 U/L [facility] BUN 14 6 - 20 mg/dL [facility] GFR, >60 >=60 mL/min/1. 7 sq meter [facility] GFR >60 >=60 mL/min/1. 7 sq meter [facility] Comment: Modification of Diet in Renal Disease (MDRD) study formula. Estimated GFR rate interpretative information for both Americans and non- Americans is available on the [facility] Intranet at: [email or web address] Select: Lab Policies and Procedures Select: Reference Ranges - GFR Blood specimen (specimen) 11/23/2008 9:25 AM CDT 11/23/2008 9:39 AM CDT us Severo Esparza MD CHEMISTRY ORDERABLES Edited [facility] CLIA# [id number] [address] [place] [address] * (ABNORMAL) CBC WITH DIFFERENTIAL (11/23/2008 9:25 AM CDT) HEMOGLOBIN 12.0 11.8 - 14.8 g/dL [facility] RDW 16.0(H) 11.5 - 14.5 % [facility] WBC 4.6 4.0 - 9.8 K/uL [facility] MCH 31.3 27.2 - 32.6 pg [facility] HEMATOCRIT 36.7 35.5 - 44.0 % [facility] RDW-STDEV 56.6(H) 37.1 - 48.7 fL [facility] RBC 3.83(L) 3.90 - 4.90 M/uL [facility] MCHC 32.7 31.5 - 35.5 % [facility] MCV 95.8 82.0 - 99.0 fL [facility] NEUTROPHILS 69 45 - 70 % [facility] NEUTROPHIL ABSOLUTE 3.18 1.90 - 7.00 K/uL [facility] LYMPHOCYTE ABSOLUTE 0.95 0.70 - 4.50 K/uL [facility] EOSINOPHILS 1 0 - 7 % [facility] BASOPHILS ABSOLUTE 0.01 0.00 - 0.20 K/uL [facility] LYMPHOCYTES 21 16 - 45 % [facility] MONOCYTE ABSOLUTE 0.39 0.10 - 1.30 K/uL [facility] BASOPHILS 0 0 - 2 % [facility] MONOCYTES 9 3 - 13 % [facility] EOSINOPHIL ABSOLUTE 0.06 0.00 - 0.70 K/uL [facility] MPV 9.6 9.3 - 12.4 fL [facility] PLATELETS 84(L) 140 - 350 K/uL [facility] Comment:Platelets verified b y smear review. Blood specimen (specimen) 11/23/2008 9:25 AM CDT 11/23/2008 9:39 AM CDT us Severo Esparza MD HEMATOLOGY ORDERABLES Edited [facility] CLIA# [id number] [address] [place] [address] * (ABNORMAL) COMPREHENSIVE METABOLIC PANEL (11/09/2008 9:22 AM CDT) BUN 16 6 - 20 mg/dL [facility] CALCIUM 9.9 8.6 - 10.2 mg/dL [facility] ALBUMIN 4.0 3.4 - 4.8 g/dL [facility] CREATININE 0.82 0.51 - 0.95 mg/dL [facility] SODIUM 138 135 - 145 mmol/L [facility] ALT 33(H) 0 - 31 U/L [facility] ALKALINE PHOSPHATASE 231(H) 35 - 104 U/L [facility] BILIRUBIN TOTAL 0.3 0.2 - 1.0 mg/dL [facility] CHLORIDE 107 96 - 108 mmol/L [facility] CO2 23 22 - 30 mmol/L [facility] TOTAL PROTEIN 7.1 6.3 - 8.6 g/dL [facility] POTASSIUM 3.5 3.5 - 4.9 mmol/L [facility] GLUCOSE 143(H) 65 - 99 mg/dL [facility] AST 29 12 - 32 U/L [facility] GFR, >60 >=60 mL/min/1. 7 sq meter [facility] GFR >60 >=60 mL/min/1. 7 sq meter [facility] Comment: Modification of Diet in Renal Disease (MDRD) study formula. Estimated GFR rate interpretative information for both Americans and non- Americans is available on the [facility] Intranet at: [email or web address] Select: Lab Policies and Procedures Select: Reference Ranges - GFR 11/09/2008 9:22 AM CDT 11/09/2008 9:33 AM CDT us Severo Esparza MD CHEMISTRY ORDERABLES Edited INTERFACE SYSTEM Refer to clinic/hospital department [facility] CLIA# [id number] [address] [place] [address] * (ABNORMAL) CBC WITH DIFFERENTIAL (11/09/2008 9:22 AM CDT) WBC 3.8(L) 4.0 - 9.8 K/uL [facility] MCH 31.3 27.2 - 32.6 pg [facility] MPV 8.6(L) 9.3 - 12.4 fL [facility] HEMATOCRIT 36.0 35.5 - 44.0 % [facility] RDW-STDEV 60.6(H) 37.1 - 48.7 fL [facility] RBC 3.80(L) 3.90 - 4.90 M/uL [facility] MCHC 33.1 31.5 - 35.5 % [facility] MCV 94.7 82.0 - 99.0 fL [facility] PLATELETS 109(L) 140 - 350 K/uL [facility] HEMOGLOBIN 11.9 11.8 - 14.8 g/dL [facility] RDW 17.2(H) 11.5 - 14.5 % [facility] LYMPHOCYTES 23 16 - 45 % [facility] LYMPHOCYTE ABSOLUTE 0.89 0.70 - 4.50 K/uL [facility] BASOPHILS 0 0 - 2 % [facility] BASOPHILS ABSOLUTE 0.01 0.00 - 0.20 K/uL [facility] MONOCYTES 11 3 - 13 % [facility] MONOCYTE ABSOLUTE 0.43 0.10 - 1.30 K/uL [facility] NEUTROPHILS 64 45 - 70 % [facility] NEUTROPHIL ABSOLUTE 2.44 1.90 - 7.00 K/uL [facility] EOSINOPHILS 1 0 - 7 % [facility] EOSINOPHIL ABSOLUTE 0.04 0.00 - 0.70 K/uL [facility] 11/09/2008 9:22 AM CDT 11/09/2008 9:33 AM CDT us Severo Esparza MD HEMATOLOGY ORDERABLES Edited INTERFACE SYSTEM Refer to clinic/hospital department [facility] CLIA# [id number] [address] [place] [address] documented in this encounter Visit Diagnoses Diagnosis Malignant neoplasm of breast (female), unspecified site documented in this encounter Care Teams Seal Mixer Relationship Specialty Start Date End Date Noemí [place] [address] [facility] [address] [id number] PCP - General 02/21/07 04/10/09 documented as of this encounter
--- OUTSIDE RECORDS SUMMARY | 2025-03-15 13:58 | XMS_ITS | Encounter Summary ---
Author Organization [facility] Address 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
--- OUTSIDE RECORDS SUMMARY | 2025-03-15 13:58 | XMS_ITS | Encounter Summary ---
Author Organization [facility] Address 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 Gender Identity Not on file Sexual Orientation Not on file documented as of this encounter Plan of Treatment Not on file documented as of this encounter Procedures Procedure Name Priority Date/Time Associated Diagnosis Comments CBC WITH DIFFERENTIAL Stat 12/07/2008 9:28 AM CDT COMPREHENSIVE METABOLIC PANEL Stat 12/07/2008 9:28 AM CDT documented in this encounter Results * (ABNORMAL) COMPREHENSIVE METABOLIC PANEL (12/07/2008 9:28 AM CDT) GLUCOSE 109(H) 65 - 99 mg/dL [facility] AST 56(H) 12 - 32 U/L [facility] BUN 15 6 - 20 mg/dL [facility] CALCIUM 10.1 8.6 - 10.2 mg/dL [facility] ALBUMIN 4.0 3.4 - 4.8 g/dL [facility] CHLORIDE 107 96 - 108 mmol/L [facility] CREATININE 0.82 0.51 - 0.95 mg/dL [facility] ALT 77(H) 0 - 31 U/L [facility] SODIUM 141 135 - 145 mmol/L [facility] ALKALINE PHOSPHATASE 275(H) 35 - 104 U/L [facility] CO2 23 22 - 30 mmol/L [facility] BILIRUBIN TOTAL 0.2 0.2 - 1.0 mg/dL [facility] POTASSIUM 3.7 3.5 - 4.9 mmol/L [facility] TOTAL PROTEIN 7.2 6.3 - 8.6 g/dL [facility] GFR, >60 >=60 mL/min/1. 7 sq meter [facility] GFR >60 >=60 mL/min/1. 7 sq meter [facility] Comment: Modification of Diet in Renal Disease (MDRD) study formula. Estimated GFR rate interpretative information for both Americans and non- Americans is available on the [facility] Intranet at: [email or web address] Select: Lab Policies and Procedures Select: Reference Ranges - GFR Blood specimen (specimen) 12/07/2008 9:28 AM CDT 12/07/2008 10:03 AM CDT us Severo Esparza MD CHEMISTRY ORDERABLES Edited [facility] CLIA# [id number] [address] [place] [address] * (ABNORMAL) CBC WITH DIFFERENTIAL (12/07/2008 9:28 AM CDT) MCV 96.8 82.0 - 99.0 fL [facility] HEMOGLOBIN 11.9 11.8 - 14.8 g/dL [facility] RDW 15.3(H) 11.5 - 14.5 % [facility] WBC 6.7 4.0 - 9.8 K/uL [facility] MCH 31.8 27.2 - 32.6 pg [facility] HEMATOCRIT 36.2 35.5 - 44.0 % [facility] RDW-STDEV 53.4(H) 37.1 - 48.7 fL [facility] RBC 3.74(L) 3.90 - 4.90 M/uL [facility] MCHC 32.9 31.5 - 35.5 % [facility] PLATELETS 87(L) 140 - 350 K/uL [facility] Comment:WBC and Platelets ve rified by smear review. MPV 9.6 9.3 - 12.4 fL [facility] BASOPHILS ABSOLUTE 0.00 0.00 - 0.20 K/uL [facility] ANISOCYTOSIS Slight [facility] EOSINOPHILS 3 0 - 7 % [facility] MONOCYTE ABSOLUTE 0.67 0.10 - 1.30 K/uL [facility] ATYPICAL LYMPHOCYTE 1 0 - 5 % [facility] LYMPHOCYTES 17 16 - 45 % [facility] NEUTROPHIL ABSOLUTE 4.56 1.90 - 7.00 K/uL [facility] NEUTROPHILS, SEG 67 45 - 70 % [facility] BASOPHILS 0 0 - 2 % [facility] HYPOCHROMIA Slight [facility] EOSINOPHIL ABSOLUTE 0.20 0.00 - 0.70 K/uL [facility] MONOCYTES 10 3 - 13 % [facility] PLATELET EST. Consistent w/ count Normal [facility] LYMPHOCYTE ABSOLUTE 1.21 0.70 - 4.50 K/uL [facility] BANDS 1 0 - 5 % [facility] METAMYELOCYTE 1(H) <=0 % [facility] Blood specimen (specimen) 12/07/2008 9:28 AM CDT 12/07/2008 10:03 AM CDT us Severo Esparza MD HEMATOLOGY ORDERABLES Edited [facility] CLIA# [id number] [address] [place] [address] documented in this encounter Visit Diagnoses Diagnosis Malignant neoplasm of breast (female), unspecified site documented in this encounter Care Teams Dentist/Owner Relationship Specialty Start Date End Date Noemí [place] [address] [facility] [place] [phone] PCP - General 02/21/07 04/10/09 documented as of this encounter
--- OUTSIDE RECORDS SUMMARY | 2025-03-15 13:58 | XMS_ITS | Encounter Summary ---
Author Organization Address 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
--- OUTSIDE RECORDS SUMMARY | 2025-03-15 13:58 | XMS_ITS | Encounter Summary ---
Author Organization [facility] Address 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
--- OUTSIDE RECORDS SUMMARY | 2025-03-15 13:58 | XMS_ITS | Encounter Summary ---
Author Organization [facility] Address 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 Gender Identity Not on file Sexual Orientation Not on file documented as of this encounter Plan of Treatment Not on file documented as of this encounter Procedures Procedure Name Priority Date/Time Associated Diagnosis Comments CT ABDOMEN PELVIS W CONTRAST Timed Study 10/06/2008 12:52 PM CDT documented in this encounter Results * CT ABDOMEN PELVIS W CONTRAST (10/06/2008 12:52 PM CDT) Anatomical Region Laterality Modality Abdomen Other 10/06/2008 12:5 2 PM CDT Narrative 10/07/2008 4:13 PM CDT [facility] [address], [place] [address] Admit Date: 10/06/2008 JUAN M GARG Sex: F Admit Prov: ESTRELLA MUSTAFA Date: 1955 Primary Care Prov: CMRN: [id number] Room: [facility] SSN: [id number] IMAGING SERVICES Ordering Prov: N/A Accession Number: [id number] Interpretation CT ABDOMEN AND PELVIS WITH INTRAVENOUS CONTRAST 10/06/2008 History: Breast cancer, colon cancer Technique: Helical images through the abdomen and pelvis following oral and intravenous contrast administration Findings: The patient is status post left mastectomy with reconstruction. The lung bases are clear. The liver, gallbladder, spleen, pancreas, kidneys and adrenal glands are normal. There is a 1 cm hypodense lesion in the left hepatic lobe. This is consistent with cyst and is unchanged since 11/01/2003. There is no hydronephrosis, hydroureter, free intraperitoneal air, fluid or adenopathy. There is no bowel obstruction. Stranding is noted in the left paracolic gutter; the patient is status post sigmoid colectomy. There are surgical clips in the pelvis. Surgical bowel anastomosis is noted at the rectum. The uterus is grossly normal. IMPRESSION: 1. Postoperative changes consistent with sigmoid colectomy. 2. No metastatic or recurrent disease. . Dictated by: JOSE ENRIQUE CARDENAS 10/06/2008 13:41 Electronically signed by: JOSE ENRIQUE CARDENAS 10/07/2008 16:12 Transcribed: 10/06/2008 13:50 AMK Procedure Note Jose Enrique Cardenas MD - 10/07/2008 [facility] [address] [place], [place] [address] Admit Date: 10/06/2008 JUAN M GARG Sex: F Admit Prov: ESTRELLA MUSTAFA Date: 1955 Primary Care Prov: CMRN: [id number] Room: [facility] SSN: [id number] IMAGING SERVICES Ordering Prov: N/A Interpretation CT ABDOMEN AND PELVIS WITH INTRAVENOUS CONTRAST 10/06/2008 History: Breast cancer, colon cancer Technique: Helical images through the abdomen and pelvis followingoral and intravenous contrast administration Findings: The patient is status post left mastectomy withreconstruction. The lung bases are clear. The liver, gallbladder, spleen, pancreas,kidneys and adrenal glands are normal. There is a 1 cm hypodense lesion inthe left hepatic lobe. This is consistent with cyst and is unchanged since 11/01/2003. There is no hydronephrosis, hydroureter, freeintraperitoneal air, fluid or adenopathy. There is no bowel obstruction. Stranding isnoted in the left paracolic gutter; the patient is status post sigmoidcolectomy. There are surgical clips in the pelvis. Surgical bowel anastomosis isnoted at the rectum. The uterus is grossly normal. IMPRESSION: 1. Postoperative changes consistent with sigmoid colectomy. 2. No metastatic or recurrent disease. . Dictated by: JOSE ENRIQUE CARDENAS 10/06/2008 13:41 Electronically signed by: JOSE ENRIQUE CARDENAS 10/07/2008 16:12 Transcribed: 10/06/2008 13:50 AMK us Estrella Mustafa MD CT ORDERABLES Final Result documented in this encounter Visit Diagnoses Diagnosis Malignant neoplasm of colon, unspecified site (CMS/HCC) Malignant neoplasm of colon, unspecified site documented in this encounter Care Teams Data Communications Technician Relationship Specialty Start Date End Date Noemí [place] [address] [facility] [phone] PCP - General 02/21/07 04/10/09 documented as of this encounter
== END 2025-03-15 12:02 | disposition home or self-care (01) ==
PROVIDERS: PCP Family Medicine; Visit Provider Family Medicine
DX: M85.89 Other specified disorders of bone density and structure, multiple sites (principal)
CPT/HCPCS: 77080